=== PATIENT | male | born 1960 | race Caucasian/White ===

== ENCOUNTER → 2016-08-21 | Outpatient (CLI) | payer OTHER ==
[2016-08-21 18:38] LABS: Blood Urea Nitrogen 16 mg/dL (9-20); Non-African American GFR(MDRD) >60 (>60 ml/min/1.73 sqM)
--- NOTE | 2016-08-21 22:16 | CT ---
EXAMINATION TYPE: CT urogram wo/w con DATE OF EXAM: 08/21/2016 7:34 PM COMPARISON: NONE HISTORY: 55-year-old male with an episode of hematuria TECHNIQUE: Contiguous axial scanning of the abdomen and pelvis performed without and with IV Contrast , patient injected with 100 mL of Omnipaque 350. Delayed images through the kidneys and bladder were obtained. Coronal/sagittal reconstructions performed. CT DLP: 4744.9 mGycm Automated exposure control for dose reduction was used. FINDINGS: The heart is normal size without pericardial effusion. Coronary vessel calcifications are present in the marker for coronary artery disease. Some strandy atelectasis at the inferior lingula. No pleural effusion. Liver is enlarged measuring 22 cm craniocaudal with diffuse low-attenuation. No focal liver lesion se en. Portal venous system is patent. No biliary ductal dilatation. Gallbladder, adrenal glands, spleen with hilar splenule, and pancreas appear within normal limits. There is no nephrolithiasis. Symmetric uptake and excretion of contrast is noted from both kidneys. At the medial right lower pole, there is increased 1.1 cm cortical-based hypodensity which is too sma ll for accurate CT characterization and may represent a cyst. Partially exophytic from the left lower pole, there is a 3.9 cm cyst without any suspicious internal features. There is normal appearance to the bilateral intrarenal collecting systems. No suspicious filling defe ct is seen within either ureter and no abnormal wall thickening is seen. Only a short segment of the right ureter as it crosses the iliac vessels remains nonopacified and suboptimally assessed. Nonspecific prominent and borderline to mildly enlarged 7 mm left para-aortic lymph node, axial image 35. Scattered nonenlarged mesenteric lymph nodes are present. No dilated small bowel, free fluid, or free air. Scattered mild stool burden without pericolonic inflammatory change. There is left hemicolonic divert iculosis without acute diverticulitis. Mild circumferential bladder wall thickening is noted. Prostate gland measures 3.8 cm wide. On the de layed image, the posterior half of the bladder is opacified and no shows no suspicious filling defect . Rectum appears normal. No abnormal fluid collection in the pelvis or pelvic lymphadenopathy. Bones: Degenerative changes lower lumbar spine. There is right L5 hemisacralization. No osseous destr uctive process. IMPRESSION: 1. NO NEPHROLITHIASIS OR HYDRONEPHROSIS. NO ABNORMALITY SEEN ALONG THE RENAL COLLECTING SYSTEMS OR UR ETERS. 2. THERE IS A 1.1 CM HYPODENSE LESION LOWER POLE RIGHT KIDNEY TOO SMALL FOR ACCURATE CT CHARACTERIZAT ION. THIS PROBABLY REPRESENTS A CYST. RECOMMEND 6 MONTH FOLLOW-UP ULTRASOUND TO EXCLUDE ANY ENLARGING LESION. 3. A 3.9 CM BENIGN CYST AT THE LEFT LOWER POLE. 4. MILD CIRCUMFERENTIAL BLADDER WALL THICKENING COULD REPRESENT CHRONIC BLADDER WALL HYPERTROPHY OR C YSTITIS. CLINICALLY CORRELATE. 5. HEPATOMEGALY WITH MARKED HEPATIC STEATOSIS. 6. LEFT HEMICOLONIC DIVERTICULOSIS WITHOUT ACUTE DIVERTICULITIS.
== END | disposition home or self-care (01) ==
LOC: RADCTMAIN 17:41
PROVIDERS: ATTEND Urology
DX: N28.1 Cyst of kidney, acquired (principal); N28.89 Other specified disorders of kidney and ureter; N32.89 Other specified disorders of bladder; K76.0 Fatty (change of) liver, not elsewhere classified; R16.0 Hepatomegaly, not elsewhere classified; K57.30 Diverticulosis of large intestine without perforation or abscess without bleeding
CPT/HCPCS: 82565; 84520; 74178; 36415; 74400; Q9967

== ENCOUNTER → 2016-08-26 | Outpatient (CLI) | payer OTHER ==
--- NOTE | 2016-08-26 15:57 | US ---
EXAMINATION TYPE: US venous doppler duplex LE DATE OF EXAM: 08/26/2016 2:57 PM COMPARISON: NONE CLINICAL HISTORY: Cramping in Lower Limb R25.2. Patient stated had right thigh and calf cramping x 1. 5 weeks which subsided and recently has had left leg cramping x 1 week with symptoms also subsiding. Has spinal arthritis. SIDE PERFORMED: Bilateral TECHNIQUE: The lower extremity deep venous system is examined utilizing real time linear array sonog ish with graded compression, doppler sonography and color-flow sonography. VESSELS IMAGED: Common Femoral Vein Deep Femoral Vein Greater Saphenous Vein * Femoral Vein Popliteal Vein Small Saphenous Vein * Proximal Calf Veins (* superficial vessels) Right Leg: Negative for DVT Left Leg: Negative for DVT Incidental note made of lymph nodes within the left groin. IMPRESSION: 1. No diagnostic evidence of DVT as visualized.
--- NOTE | 2016-09-02 11:08 | P.ARTDOP ---
Arterial Doppler LOWER EXTREMITY ARTERIAL DOPPLER: DATE OF SERVICE: 08/26/2016 Reason for study: Leg pain. Doppler waveforms: Multiphasic bilaterally throughout. Pulse volume recording: []. Pressure gradients: None. Ankle-brachial indices: Greater than 1 bilaterally. Toe pressures: [] on the right, [] on the left Impression: Normal study.
== END | disposition home or self-care (01) ==
LOC: RADUSWWP 14:06
PROVIDERS: ATTEND Family Medicine
DX: R25.2 Cramp and spasm (principal)
CPT/HCPCS: 93922; 93970

== ENCOUNTER 2016-12-22 12:01 | Emergency (ER) | payer OTHER ==
[2016-12-22] MEDS ORDERED: KETOROLAC 30 MG/ML 1 ML VIAL IVP STA (12:28)
[2016-12-22] MEDS ORDERED: RX INFO: IV CONTRAST WAS GIVEN 1 EACH MISC MISCELLANE PRN (12:28)
[2016-12-22] MEDS ORDERED: SODIUM CHLORIDE 0.9% 500 ML IV STA (12:28)
[2016-12-22] MEDS ORDERED: SODIUM CHLORIDE 0.9% 1,000 ML IV STA (12:28)
[2016-12-22] MEDS ORDERED: LEVOFLOXACIN 750MG-D5W PMX 750 MG in DEXTROSE/WATER 1 150ML.BAG IVPB STA (12:28)
[2016-12-22 13:10] LABS: Basophils # (A) 0.1 k/uL (0-0.2); Basophils % (A) 0 %; CH 31.8; Eosinophils # (A) 0.3 k/uL (0-0.7); Eosinophils % (A) 2 %; HCT 45.9 % (39.0-53.0); HDW 2.74; HGB 15.8 gm/dL (13.0-17.5); Luc % (Auto) 1; Lymphocytes % (A) 14 %; MCH 30.5 pg (25.0-35.0); MCHC 34.4 g/dL (31.0-37.0); MCV 88.7 fL (80.0-100.0); Mean Platelet Volume 7.2; Monocytes # (A) 0.8 k/uL (0-1.0); Monocytes % (A) 6 %; Neutrophils % (A) 77 %; RBC 5.18 m/uL (4.30-5.90); RDW 14.2 % (11.5-15.5); WBC 14.4 k/uL (3.8-10.6); WBC (Perox) 14.03
[2016-12-22 13:20] LABS: ALT 74 U/L (21-72); AST 36 U/L (17-59); Alkaline Phosphatase 88 U/L (38-126); Amylase 52 U/L (30-110); Anion Gap 13 mmol/L; Blood Urea Nitrogen 15 mg/dL (9-20); Calcium 9.5 mg/dL (8.4-10.2); Carbon Dioxide 24 mmol/L (22-30); Chloride 101 mmol/L (98-107); Glucose 79 mg/dL (74-99); Non-African American GFR(MDRD) >60 (>60 ml/min/1.73 sqM); Potassium 4.4 mmol/L (3.5-5.1); Sodium 138 mmol/L (137-145); Total Bilirubin 0.8 mg/dL (0.2-1.3); Total Protein 7.3 g/dL (6.3-8.2)
[2016-12-22 13:26] LABS: Appearance,Urine Clear (Clear); Bilirubin,Urine Negative (Negative); Glucose,Urine (UA) Negative (Negative); Ketones,Urine Negative (Negative); Leukocyte Esterase,Urine Moderate (Negative); Nitrite,Urine Negative (Negative); PH, Urine 5.5 (5.0-8.0); Particle Count 607; Protein,Urine Negative (Negative); Specific Gravity,Urine 1.012 (1.001-1.035); Squamous Epithelial Cell,Urine <1 /hpf (0-4); UA Billing (MACRO vs. MICRO) MICRO; Urobilinogen,Urine <2.0 mg/dL (<2.0); WBC,Urine 9 /hpf (0-5)
[2016-12-22 13:33] LABS: Partial Thromboplastin Time 24.7 sec (22.0-30.0); Prothrombin Time 10.5 sec (9.0-12.0)
--- NOTE | 2016-12-22 14:17 | CT ---
EXAMINATION TYPE: CT abdomen pelvis w con DATE OF EXAM: 12/22/2016 COMPARISON: NONE INDICATION: lower ab pain since operations asst DLP: 2457.0 mGycm, Automated exposure control for dose reduction was used. CONTRAST: 100 mL of Omnipaque 300. Study performed without Oral Contrast TECHNIQUE: Axial images were obtained from above the diaphragm to the pubic rami in the axial plane a t 5 mm thick sections. Reconstructed images are reviewed on the computer in the coronal plane. FINDINGS: Limited CT sections are obtained the lung bases. The lung bases are clear. CT ABDOMEN: Liver: There is moderate fatty infiltration liver. No discrete masses or cysts are evident. Spleen: Normal Pancreas: Normal Adrenal glands: The adrenal glands are normal. Gallbladder: Normal Kidneys: No masses are evident. No hydronephrosis is present. There is a 4.0 cm cyst on the posteri or medial inferior left kidney measuring 8 Hounsfield units. Delayed images were obtained through th e kidneys, which remain unremarkable. Aorta: Vascular calcification is within the aorta. Inferior vena cava: Normal. CT PELVIS: Inflammatory changes are adjacent to the distal descending colon sigmoid colon junction compatible so me acute diverticulitis. Distal colon appears normal. Appendix: Not identified Urinary bladder: Normal. Genitourinary structures: Prostate is unremarkable. Osseous structures: No suspicious lytic or sclerotic lesions. IMPRESSIONS: 1. Acute diverticulitis descending colon sigmoid colon junction. No abscess formation is identified. 2. Left renal cyst 3. Moderate fatty infiltration of the liver
--- NOTE | 2016-12-22 15:09 | ED ---
Abdominal Pain HPI - General Chief Complaint: Abdominal Pain Stated Complaint: intestinal problems Time Seen by Provider: 12/22/16 12:23 Source: patient Mode of arrival: ambulatory Limitations: no limitations - History of Present Illness Initial Comments: This 56-year-old white male presents with a complaint of some left lower quadrant abdominal pain. The symptoms just started this morning. He states that it is moderate in severity. He denies any nausea vomiting, diarrhea, constipation, fevers, or chills. He denies any previous similar incidents. It is worse with certain movements. He denies any flank pain. There are no urinary problems such as frequency, urgency, dysuria, or hematuria. He does relate that he had a colonoscopy a couple years ago which did not show any abnormalities. He has never had diverticulitis in the past. - Related Data Home Medications Medication Instructions Recorded Confirmed Atorvastatin [Lipitor] 10 mg PO DAILY 05/16/14 12/22/16 Lisinopril [Prinivil] 20 mg PO DAILY 05/16/14 12/22/16 Bimatoprost [Lumigan .01% Ophth 1 drop RIGHT EYE HS 12/22/16 12/22/16 Soln] Diazepam [Diazepam] 2 mg PO BID PRN 12/22/16 12/22/16 Previous Rx's Medication Instructions Recorded Ciprofloxacin HCl [Cipro] 500 mg PO Q12HR #20 tablet 12/22/16 metroNIDAZOLE [Flagyl] 500 mg PO BID #20 tab 12/22/16 traMADol HCl [Ultram] 50 - 100 mg PO Q6H PRN #20 tab 12/22/16 Allergies Allergy/AdvReac Type Severity Reaction Status Date / Time No Known Allergies Allergy Verified 12/22/16 12:16 Review of Systems ROS Statement: Those systems with pertinent positive or pertinent negative responses have been documented in the HPI. ROS Other: All systems not noted in ROS Statement are negative. Past Medical History Past Medical History: Asthma, Eye Disorder, GERD/Reflux, Hyperlipidemia, Hypertension Additional Past Medical History / Comment(s): glaucoma History of Any Multi-Drug Resistant Organisms: None Reported Past Surgical History: Tonsillectomy Past Anesthesia/Blood Transfusion Reactions: No Reported Reaction Past Psychological History: No Psychological Hx Reported Smoking Status: Former smoker Past Alcohol Use History: Occasional Past Drug Use History: None Reported General Exam - General Exam Comments Initial Comments: GENERAL: The patient is well nourished and well hydrated. VITAL SIGNS: Heart rate, blood pressure, respiratory rate reviewed as recorded in nurse's notes. EYES: Pupils are round and reactive. Extraocular movements are intact. No conjunctival / lid redness or swelling. ENT: No external evidence of injury, swelling, or ecchymosis. Airway is patent. Throat is clear. NECK: Nontender. No swelling or evidence of injury. No subcutaneous emphysema. Trachea is midline. No thyroid mass. HEART: Regular rate and rhythm. Good peripheral pulses. LUNGS/CHEST: Breath sounds clear and equal bilaterally. No rales, rhonchi, or wheezes. No ecchymosis, subcutaneous emphysema, or tenderness. ABDOMEN: There is some mild tenderness noted to the left lower quadrant of the abdomen. No palpable masses or organomegaly. No peritoneal signs. No abdominal wall swelling or ecchymosis. EXTREMITIES: No extremity tenderness. Normal muscle tone and function. No thoracolumbar tenderness. NEUROLOGIC: Sensation is grossly intact. Cranial nerve exam reveals face is symmetrical, tongue is midline, speech is clear. SKIN: No abrasions or ecchymosis is noted. No induration or masses noted. PSYCHIATRIC: Alert and oriented. Appropriate behavior and judgment. Limitations: no limitations Course Vital Signs 12/22/16 12:16 Temperature 97.2 F L Pulse Rate 68 Respiratory 16 Rate Blood Pressure 129/70 O2 Sat by Pulse 96 Oximetry Medical Decision Making - Medical Decision Making The patient was seen and examined. All diagnostics were reviewed. The laboratory shows a leukocytosis but otherwise within normal limits. The computed tomography scan shows an uncomplicated left lower quadrant diverticulitis. There is no evidence of abscess. Old records were reviewed and the colonoscopy does show evidence of diverticulosis 2 years ago. He does receive some IV fluids, Toradol, and IV Levaquin. It is felt as though he does have diverticulitis. A long discussion was held in regard to inpatient versus outpatient treatment. He would prefer trial of outpatient treatment but has agreed to return if symptoms do worsen. He was counseled extensively regarding his disorder and diet therapy as well. He leaves in no identifiable distress. - Lab Data Result diagrams: 12/22/16 12:53 12/22/16 12:53 Lab Results 12/22/16 12/22/16 12/22/16 Range/Units 12:53 12:53 12:53 WBC 14.4 H (3.8-10.6) k/uL RBC 5.18 (4.30-5.90) m/uL Hgb 15.8 (13.0-17.5) gm/dL Hct 45.9 (39.0-53.0) % MCV 88.7 (80.0-100.0) fL MCH 30.5 (25.0-35.0) pg MCHC 34.4 (31.0-37.0) g/dL RDW 14.2 (11.5-15.5) % Plt Count 226 (150-450) k/uL Neutrophils % 77 % Lymphocytes % 14 % Monocytes % 6 % Eosinophils % 2 % Basophils % 0 % Neutrophils # 11.0 H (1.3-7.7) k/uL Lymphocytes # 2.0 (1.0-4.8) k/uL Monocytes # 0.8 (0-1.0) k/uL Eosinophils # 0.3 (0-0.7) k/uL Basophils # 0.1 (0-0.2) k/uL PT 10.5 (9.0-12.0) sec INR 1.0 (<1.2) APTT 24.7 (22.0-30.0) sec Sodium 138 (137-145) mmol/L Potassium 4.4 (3.5-5.1) mmol/L Chloride 101 (98-107) mmol/L Carbon Dioxide 24 (22-30) mmol/L Anion Gap 13 mmol/L BUN 15 (9-20) mg/dL Creatinine 0.85 (0.66-1.25) mg/dL Est GFR (MDRD) Af Amer >60 (>60 ml/min/1.73 sqM) Est GFR (MDRD) Non-Af >60 (>60 ml/min/1.73 sqM) Glucose 79 (74-99) mg/dL Calcium 9.5 (8.4-10.2) mg/dL Total Bilirubin 0.8 (0.2-1.3) mg/dL AST 36 (17-59) U/L ALT 74 H (21-72) U/L Alkaline Phosphatase 88 (38-126) U/L Total Protein 7.3 (6.3-8.2) g/dL Albumin 4.4 (3.5-5.0) g/dL Amylase 52 (30-110) U/L Lipase 104 (23-300) U/L Urine Color Urine Appearance (Clear) Urine pH (5.0-8.0) Ur Specific [place] (1.001-1.035) Urine Protein (Negative) Urine Glucose (UA) (Negative) Urine Ketones (Negative) Urine Blood (Negative) Urine Nitrite (Negative) Urine Bilirubin (Negative) Urine Urobilinogen (<2.0) mg/dL Ur Leukocyte Esterase (Negative) Urine WBC (0-5) /hpf Ur Squamous Epith Cells (0-4) /hpf 12/22/16 Range/Units 12:53 WBC (3.8-10.6) k/uL RBC (4.30-5.90) m/uL Hgb (13.0-17.5) gm/dL Hct (39.0-53.0) % MCV (80.0-100.0) fL MCH (25.0-35.0) pg MCHC (31.0-37.0) g/dL RDW (11.5-15.5) % Plt Count (150-450) k/uL Neutrophils % % Lymphocytes % % Monocytes % % Eosinophils % % Basophils % % Neutrophils # (1.3-7.7) k/uL Lymphocytes # (1.0-4.8) k/uL Monocytes # (0-1.0) k/uL Eosinophils # (0-0.7) k/uL Basophils # (0-0.2) k/uL PT (9.0-12.0) sec INR (<1.2) APTT (22.0-30.0) sec Sodium (137-145) mmol/L Potassium (3.5-5.1) mmol/L Chloride (98-107) mmol/L Carbon Dioxide (22-30) mmol/L Anion Gap mmol/L BUN (9-20) mg/dL Creatinine (0.66-1.25) mg/dL Est GFR (MDRD) Af Amer (>60 ml/min/1.73 sqM) Est GFR (MDRD) Non-Af (>60 ml/min/1.73 sqM) Glucose (74-99) mg/dL Calcium (8.4-10.2) mg/dL Total Bilirubin (0.2-1.3) mg/dL AST (17-59) U/L ALT (21-72) U/L Alkaline Phosphatase (38-126) U/L Total Protein (6.3-8.2) g/dL Albumin (3.5-5.0) g/dL Amylase (30-110) U/L Lipase (23-300) U/L Urine Color Yellow Urine Appearance Clear (Clear) Urine pH 5.5 (5.0-8.0) Ur Specific [place] 1.012 (1.001-1.035) Urine Protein Negative (Negative) Urine Glucose (UA) Negative (Negative) Urine Ketones Negative (Negative) Urine Blood Negative (Negative) Urine Nitrite Negative (Negative) Urine Bilirubin Negative (Negative) Urine Urobilinogen <2.0 (<2.0) mg/dL Ur Leukocyte Esterase Moderate H (Negative) Urine WBC 9 H (0-5) /hpf Ur Squamous Epith Cells <1 (0-4) /hpf Disposition Clinical Impression: Diverticulitis, Abdominal pain, Leukocytosis Disposition: HOME SELF-CARE Condition: Good Instructions: Abdominal Pain (ED), Diverticulitis (ED), Diverticulitis Diet (ED ) Prescriptions: Ciprofloxacin HCl [Cipro] 500 mg PO Q12HR #20 tablet metroNIDAZOLE [Flagyl] 500 mg PO BID #20 tab traMADol HCl [Ultram] 50 - 100 mg PO Q6H PRN #20 tab PRN Reason: Pain Referrals: Rob Carter DO [Primary Care Provider] - 1-2 days Time of Disposition: 15:08
[2016-12-22 15:26] VITALS: BP 122/78; PULSE 64; RESP 18; TEMP 98.4
== END 2016-12-22 15:26 | disposition home or self-care (01) ==
LOC: EC 12:01
DX: K57.32 Diverticulitis of large intestine without perforation or abscess without bleeding (principal); E78.5 Hyperlipidemia, unspecified; I10 Essential (primary) hypertension; Z87.891 Personal history of nicotine dependence; Z98.890 Other specified postprocedural states; Z79.899 Other long term (current) drug therapy
CPT/HCPCS: 99284; 96365; 96366; 96375; 96361; 36415; 80053; 82150; 83690; 85025; 85610; 85730; 81001; 87040; 74177; J1885; J1956

== ENCOUNTER → 2018-08-31 | Outpatient (CLI) | payer BC, OTHER ==
[2018-09-02 11:29] VITALS: BMI 44.9
== END ==
LOC: DBWHC3 14:45
DX: E66.01 Morbid (severe) obesity due to excess calories (principal)
CPT/HCPCS: 97802

== ENCOUNTER 2020-02-27 07:02 | Day surgery (SDC) | payer BC, OTHER ==
[2020-02-22 14:31] VITALS: BMI 45.8
[~2020-02-27 07:02] MED LIST: LACTATED RINGERS 1,000 ML IV SCH; LIDOCAINE 1% (10MG/ML) FOR IV START INTRADERMA PRN
[2020-02-27 07:31] VITALS: TEMP 98
[2020-02-27] MEDS ORDERED: LIDOCAINE 1% INJ 10MG/ML (20 ML MDV) ONE (08:04)
[2020-02-27] MEDS ORDERED: PROPOFOL 10 MG/ML 20 ML VIAL IV ONE (08:04)
--- NOTE | 2020-02-27 08:35 | P.PCN ---
Date of Procedure: 02/27/20 Description of Procedure: BRIEF HISTORY: Patient is a 59-year-old male presenting for outpatient colonoscopy for screening for malignant neoplasm in the colon. Last colonoscopy 5 years ago. Denies any blood per rectum or family history of colon cancer. PROCEDURE PERFORMED: Colonoscopy with polypectomy. PREOPERATIVE DIAGNOSIS: Screening for malignant neoplasm of the colon, last colonoscopy 5 years ago, patient does report a history of diverticulosis and polyps. ESTIMATED BLOOD LOSS: Minimal. IV sedation per Anesthesia. PROCEDURE: After informed consent was obtained, the patient, was brought into the endoscopy unit. IV sedation was administered by Anesthesia under continuous monitoring. Digital rectal examination was normal. Initially the Olympus CF-190 flexible video colonoscope was then inserted in the rectum, gradually advanced into the cecum without any difficulty. Careful examination was performed as the scope was gradually being withdrawn. Ileocecal valve and the appendiceal orifice were visualized and appeared normal. Prep was excellent. Mucosa of the cecum, as cending colon, transverse colon, descending colon, sigmoid colon, and rectum appeared normal. Cold snare polypectomy of ascending colon polyp measuring 7 mm in size, hepatic flexure polyp measuring 4 mm in size, transverse colon polyps measuring 4 and 5 mm in size. Cold forcep polypectomy of diminutive 2 mm rectal polyp. Multiple small and large mouth diverticula in the sigmoid colon. Retroflexion was performed in the rectum and no lesions were seen. The patient tolerated the procedure well. IMPRESSION: 4 flat polyps removed with cold snare polypectomy from the ascending colon, hepatic flexure, and transverse colon 2. Diminutive rectal polyp removed with cold forceps. Moderate sigmoid diverticulosis. RECOMMENDATIONS: Findings of this examination were discussed with the patient and his girlfriend. Okay to resume diet. Okay to resume medications. Await pathology from polypectomy. Recommend repeat colonoscopy in 3 years for high risk colon polyps pending pathology from polypectomies.
[2020-02-27 09:32] VITALS: BP 146/72; PULSE 65; RESP 16
== END 2020-02-27 09:30 | disposition home or self-care (01) ==
LOC: ORWHC2ENDO 07:02
PROVIDERS: ATTEND Internal Medicine
DX: Z12.11 Encounter for screening for malignant neoplasm of colon (principal); D12.3 Benign neoplasm of transverse colon; D12.2 Benign neoplasm of ascending colon; K62.1 Rectal polyp; K57.30 Diverticulosis of large intestine without perforation or abscess without bleeding; Z86.010 Personal history of colon polyps; I10 Essential (primary) hypertension; E78.5 Hyperlipidemia, unspecified; J45.909 Unspecified asthma, uncomplicated; K76.0 Fatty (change of) liver, not elsewhere classified; Z98.890 Other specified postprocedural states; Z87.891 Personal history of nicotine dependence
CPT/HCPCS: 88305; 45380; 45385; J2001; J2704

== ENCOUNTER → 2020-09-24 | Outpatient (CLI) | payer BC, OTHER ==
--- NOTE | 2020-09-25 08:34 | CT ---
EXAMINATION TYPE: CT chest wo con DATE OF EXAM: 09/24/2020 COMPARISON: None HISTORY: Dyspnea CT DLP: 1314.60 mGycm, Automated exposure control for dose reduction was used. CONTRAST: None TECHNIQUE: Axial images were obtained at 1 mm thick sections at 10 mm intervals. This will limit po rtions of the examination which may not be visualized within the [id number]. Images were obtained in the prone and supine views. FINDINGS: No suspicious lung nodules or focal infiltrates are present. No enlarged mediastinal or hilar adenopathy is evident. The ascending aorta diameter at the level o f the main pulmonary artery is 4.2 cm. The main pulmonary artery diameter at the bifurcation is 2.9 cm. Some coronary artery calcification is present. Limited CT sections are obtained through the upper abdomen. Abdomen is essentially unremarkable. IMPRESSIONS: 1. Ascending thoracic aortic aneurysm measuring 4.2 cm. 2. No suspicious lung findings.
== END | disposition home or self-care (01) ==
LOC: RADCTMAIN 16:04
PROVIDERS: ATTEND Internal Medicine
DX: I71.2 Thoracic aortic aneurysm, without rupture (principal)
CPT/HCPCS: 71250

== ENCOUNTER → 2021-03-13 | Outpatient (CLI) | payer BC, OTHER ==
[2021-03-13 16:04] VITALS: BP 158/88; PULSE 73; RESP 16; TEMP 98; BMI 45.8
--- NOTE | 2021-03-13 16:05 | P.HPBAR ---
Bariatric H&P - History & Physicial H&P Date: 03/13/21 History & Physicial: Visit/CC: Patient initial contact: Initial weight: Initial weight in pounds: Height: Initial BMI: Last weight: Current weight: Current weight in pounds: Current BMI: [place] body weight (based on NIH guidelines): Excess body weight loss: The patient is a 60 year-old M who presents for Bariatric Assessment. Patient presents to the bariatric clinic with his here. Patient has been considering weight loss surgery for the last year or so. Patient has complaints of shortness of breath which has been exacerbated by wearing masks during the pandemic. Patient suffers from hypertension, asthma, hypercholesterolemia, sleep apnea, reflux, diabetes, elevated liver enzymes with fatty liver, anxiety. Patient been seen by GI for his liver enzyme elevation, pulmonary for shortness of breath, cardiology as well. Denies history of DVT or dysphagia. Quit tobacco 25 years ago. No abdominal surgeries. BMI 45. Patient's had a lap band placed years ago and has done well with that. Patient has been considering lap band and sleeve gastrectomy. Review of Systems The patient denies any acute changes in vision or hearing, no dysphagia or odynophagia, no chest pain or shortness of breath, no dysuria or hematuria, no headache, no runny nose, no rectal bleeding or melena, no unexplained weight loss Past Medical History Past Medical History: Asthma, Eye Disorder, GERD/Reflux, Hyperlipidemia, Hypertension Additional Past Medical History / Comment(s): glaucoma History of Any Multi-Drug Resistant Organisms: None Reported Past Surgical History: Tonsillectomy Past Anesthesia/Blood Transfusion Reactions: No Reported Reaction Smoking Status: Former smoker Surgical - Exam Physical exam: General: Well-developed, well-nourished HEENT: Normocephalic, sclerae nonicteric Abdomen: Nontender, nondistended Extremities: No edema Neuro: Alert and oriented Bariatric Assessment & Plan (1) Morbid obesity with BMI of 45.0-49.9, adult Narrative/Plan: 60-year-old male with morbid obesity and associated comorbidities. Patient I discussed the risks and benefits of the proposed and widely accepted bariatric surgical procedures. The mechanisms of actions of both gastric bypass, lap band and gastric sleeve reviewed as well as the anticipated postoperative weight loss. Patient now is agreeable and seems to be most interested in sleeve gastrectomy. We'll obtain primary care, pulmonary and cardiac clearance. Tentatively scheduled for upper endoscopy in the next month or so. Patient does not appear to require supervised weight loss. Status: Acute Bariatric Checklist Checklist: Plan: Checklist: EGD: 1. Hiatal hernia: 2. H. Pylori: HgbA1c: Vitamin D: Smoking: Former smoker Primary care physician referral: Psychiatry clearance: Cardiology clearance: Sleep study: Diet journal: VTE risk score: VTE risk level: Rehab needs at discharge:
[2021-03-13 17:31] LABS: HCT 42.7 % (39.0-53.0); HGB 14.7 gm/dL (13.0-17.5); MCHC 34.3 g/dL (31.0-37.0); MCV 96.1 fL (80.0-100.0); Mean Platelet Volume 8.3; Platelet Count 144 k/uL (150-450); RBC 4.45 m/uL (4.30-5.90); RDW 13.8 % (11.5-15.5); WBC 9.6 k/uL (3.8-10.6)
[2021-03-14 04:04] LABS: African American GFR (CKD) 106.5 (60.0-200.0); Albumin 4.5 g/dL (3.8-4.9); Albumin/Globulin Ratio 1.55 (1.60-3.17); Anion Gap 15.8 mmol/L (10.00-18.00); BUN/Creat Ratio 18.78 Ratio (12.00-20.00); Blood Urea Nitrogen 16.9 mg/dL (9.0-27.0); Calcium 9.8 mg/dL (8.7-10.3); Carbon Dioxide 19.2 mmol/L (20.0-27.5); Globulin 2.9 g/dL (1.6-3.3); Non-African American GFR(CKD) 91.9 (60.0-200.0); Potassium 4.1 mmol/L (3.5-5.5); Total Bilirubin 0.7 mg/dL (0.30-1.20); Total Protein 7.4 g/dL (6.2-8.2)
[2021-03-14 04:05] LABS: Folate, Serum 9.6 ng/mL (4.40-31.00)
== END | disposition home or self-care (01) ==
LOC: BARWHC3 15:18
PROVIDERS: ATTEND Surgery
DX: E66.01 Morbid (severe) obesity due to excess calories (principal); Z68.42 Body mass index [BMI] 45.0-49.9, adult
CPT/HCPCS: 80053; 80323; 82306; 82607; 82746; 83036; 83540; 84425; 85027; 93005; 99203

== ENCOUNTER 2021-05-13 06:52 | Day surgery (SDC) | payer BC, OTHER ==
[2021-05-08 15:33] VITALS: BMI 46.5
[2021-05-13 07:24] VITALS: RESP 16; TEMP 97.2
[2021-05-13 07:24] LABS: Glucose,Whole Blood 124 mg/dL (75-99)
[2021-05-13] MEDS ORDERED: PROPOFOL 10 MG/ML 20 ML VIAL IV ONE (08:12)
[2021-05-13] MEDS ORDERED: LIDOCAINE 1% INJ 10MG/ML (20 ML MDV) ONE (08:12)
--- NOTE | 2021-05-13 08:15 | P.GSHP ---
History of Present Illness H&P Date: 05/13/21 Chief Complaint: GERD 60-year-old male here today for upper endoscopy. Patient is being worked up for possible sleeve gastrectomy. Describes mild reflux at times. No dysphagia. No previous EGD. Past Medical History Past Medical History: Asthma, Diabetes Mellitus, Eye Disorder, GERD/Reflux, Hyperlipidemia, Hypertension, Sleep Apnea/CPAP/BIPAP Additional Past Medical History / Comment(s): ELEVATED EYE PRESSURE , C PAP MACHINE, ELEVATED LIVER ENZYMES, History of Any Multi-Drug Resistant Organisms: None Reported Past Surgical History: Tonsillectomy Additional Past Surgical History / Comment(s): LASER EYE SURGERY- FOR PRESSURE OF EYE Past Anesthesia/Blood Transfusion Reactions: No Reported Reaction Smoking Status: Former smoker - Past Family History Mother Family Medical History: Cancer Additional Family Medical History / Comment(s): BREAST CANCER Sister(s) Family Medical History: Cancer Medications and Allergies Home Medications Medication Instructions Recorded Confirmed Type lisinopriL [Prinivil] 20 mg PO BID 05/16/14 05/13/21 History Albuterol Inhaler [Ventolin Hfa 1 puff INHALATION DAILY PRN 02/22/20 05/13/21 History Inhaler] Cinnamon Bark [Cinnamon] 500 mg PO DAILY 05/08/21 05/08/21 History Milk Thistle 150 mg PO DAILY 05/08/21 05/08/21 History Netarsudil Mesylat/Latanoprost 1 drop BOTH EYES HS 05/08/21 05/08/21 History [Rocklatan 0.02%-0.005% Eye Drp] Zolpidem [Ambien] 10 mg PO HS PRN 05/08/21 05/08/21 History metFORMIN HCL 500 mg PO BID 05/08/21 05/13/21 History Allergies Allergy/AdvReac Type Severity Reaction Status Date / Time No Known Allergies Allergy Verified 05/08/21 13:40 Surgical - Exam Vital Signs Temp Pulse Resp BP Pulse Ox 97.2 F L 70 16 152/71 97 05/13/21 07:22 05/13/21 07:22 05/13/21 07:22 05/13/21 07:22 05/13/21 07:22 Physical exam: General: Well-developed, well-nourished HEENT: Normocephalic, sclerae nonicteric Abdomen: Nontender, nondistended Extremities: No edema Neuro: Alert and oriented Results - Labs Abnormal Lab Results - Last 24 Hours (Table) 05/13/21 Range/Units 07:20 POC Glucose (mg/dL) 124 H (75-99) mg/dL Assessment and Plan (1) GERD (gastroesophageal reflux disease) Narrative/Plan: Will proceed with upper endoscopy Current Visit: Yes Status: Acute Code(s): K21.9 - GASTRO-ESOPHAGEAL REFLUX DISEASE WITHOUT ESOPHAGITIS SNOMED Code(s): 826487831
--- NOTE | 2021-05-13 08:24 | P.PCN ---
Date of Procedure: 05/13/21 Procedure(s) Performed: Preoperative Dx: GERD, presurgical Postoperative Dx: Mild gastritis, possible paraesophageal hernia Procedure: EGD with Bx Anesthesia: Sedation Endoscopist: Dr. Gaffney Specimens: Antrum Endoscopic Procedure: The patient was on the endoscopy table in the left decubitus position. The Olympus gastroscope was inserted into the oropharynx and passed under direct visualization to the region of the third portion of the duodenum. From that point the scope was slowly withdrawn inspecting all surfaces carefully. There were no neoplastic inflammatory or polypoid lesions throughout the duodenum. The pylorus was widely patent. The stomach was carefully inspected. There was mild gastritis present. A biopsy of the antrum took place to rule out H. pylori. Retroflexion revealed no obvious hiatal hernia however at the fundus there did appear to be more extension into the diaphragm than expected. A paraesophageal hernia is not excluded. The esophagus was then carefully examined. There were no neoplastic inflammatory or polypoid lesions throughout the visualized esophagus. The patient was then taken to the recovery room in stable condition per anesthesia guidelines. Recommendations: Await biopsy results. Will order CT chest if one has not been performed in the past. Follow-up bariatric clinic.
[2021-05-13 08:47] VITALS: BP 125/68; PULSE 62
== END 2021-05-13 09:20 | disposition home or self-care (01) ==
LOC: ORWHC2ENDO 06:52
PROVIDERS: ATTEND Surgery
DX: K29.50 Unspecified chronic gastritis without bleeding (principal); K21.9 Gastro-esophageal reflux disease without esophagitis; J45.909 Unspecified asthma, uncomplicated; E11.9 Type 2 diabetes mellitus without complications; E78.5 Hyperlipidemia, unspecified; I10 Essential (primary) hypertension; G47.33 Obstructive sleep apnea (adult) (pediatric); Z87.891 Personal history of nicotine dependence; R74.8 Abnormal levels of other serum enzymes; Z97.2 Presence of dental prosthetic device (complete) (partial); Z98.890 Other specified postprocedural states; Z80.3 Family history of malignant neoplasm of breast; Z80.9 Family history of malignant neoplasm, unspecified; Z79.84 Long term (current) use of oral hypoglycemic drugs; Z79.899 Other long term (current) drug therapy
CPT/HCPCS: 88305; 43239; J2001; J2704

== ENCOUNTER → 2021-05-26 | Outpatient (CLI) | payer BC, OTHER ==
[2021-05-26 12:00] VITALS: BMI 46.0
== END | disposition home or self-care (01) ==
LOC: BARWHC3 08:05
PROVIDERS: ATTEND Surgery
DX: E66.01 Morbid (severe) obesity due to excess calories (principal); Z71.3 Dietary counseling and surveillance
CPT/HCPCS: 97804

== ENCOUNTER → 2021-09-03 | Outpatient (CLI) | payer BC, OTHER ==
[2021-09-04 00:24] LABS: African American GFR (CKD) 72.3 (60.0-200.0); Albumin 4.7 g/dL (3.8-4.9); Albumin/Globulin Ratio 1.44 (1.60-3.17); BUN/Creat Ratio 27.74 Ratio (12.00-20.00); Blood Urea Nitrogen 34.4 mg/dL (9.0-27.0); Calcium 9.7 mg/dL (8.7-10.3); Carbon Dioxide 18.6 mmol/L (20.0-27.5); Globulin 3.2 g/dL (1.6-3.3); Non-African American GFR(CKD) 62.4 (60.0-200.0); Potassium 4.6 mmol/L (3.5-5.5); Total Bilirubin 0.8 mg/dL (0.30-1.20); Total Protein 7.9 g/dL (6.2-8.2)
[2021-09-04 01:13] LABS: Basophils # (A) 0.06 X 10*3/uL (0.00-0.10); Basophils % (A) 0.6 %; Eosinophils # (A) 0.23 X 10*3/uL (0.04-0.35); Eosinophils % (A) 2.4 %; HCT 41.4 % (39.6-50.0); HGB 13.2 g/dL (13.0-17.0); Immature Grans, Automated 0.2 %; Lymphocytes # (A) 2.85 X 10*3/uL (0.90-5.00); MCHC 31.9 g/dL (32.0-37.0); MCV 84.8 fL (80.0-97.0); Mean Platelet Volume 12.2 fL (9.5-12.2); Monocytes # (A) 0.86 X 10*3/uL (0.20-1.00); Monocytes % (A) 9.1 %; NRBC Per 100 WBC 0 /100 WBCS (0.0-0.0); Neutrophils # (A) 5.48 X 10*3/uL (1.80-7.70); Neutrophils % (A) 57.7 %; Platelet Count 116 X 10*3/uL (140-440); RBC 4.88 X 10*6/uL (4.40-5.60); RDW 17.5 % (11.5-14.5)
== END | disposition home or self-care (01) ==
LOC: LABPAT 14:26
PROVIDERS: ATTEND Surgery
DX: Z01.812 Encounter for preprocedural laboratory examination (principal)
CPT/HCPCS: 80053; 85025

== ENCOUNTER 2021-09-08 08:41 | Inpatient (IN) | payer BC, OTHER ==
[2021-09-04 10:12] VITALS: BMI 41.6
[~2021-09-08 08:41] MED LIST changes: +DEXAMETHASONE SOD PHOSPHATE 4 MG/ML 1 ML VIAL IV ONE; +ENOXAPARIN 40 MG/0.4 ML SYRINGE SQ PRN; -LACTATED RINGERS 1,000 ML IV SCH; +METOCLOPRAMIDE 5 MG/ML 2 ML VIAL IVP PRN; +ONDANSETRON 4 MG/2 ML VIAL IVP ONE; +SCOPOLAMINE 1 MG/72 HR PATCH TRANSDERM ONE; +ceFAZolin 3 GM in SODIUM CHLORIDE 0.9% 100 ML IVPB PRN
--- NOTE | 2021-09-08 09:26 | P.GSHP ---
History of Present Illness H&P Date: 09/08/21 Chief Complaint: Morbid obesity 60-year-old male here today for elective laparoscopic da Dino-assisted sleeve gastrectomy. The patient was initially seen in March of last year for his weight loss surgery. Patient suffers from hypertension asthma hypercholesterolemia and sleep apnea GERD diabetes elevated liver enzymes with fatty liver and anxiety. No active tobacco use. No history of DVT or dysphagia. Recent EGD showed gastritis and possible paraesophageal hiatal hernia but recent CAT scan shows no diaphragmatic defect at the fundus. Past Medical History Past Medical History: Asthma, Diabetes Mellitus, Eye Disorder, GERD/Reflux, Hyperlipidemia, Hypertension, Osteoarthritis (OA), Sleep Apnea/CPAP/BIPAP Additional Past Medical History / Comment(s): ELEVATED EYE PRESSURE , C PAP MACHINE, ELEVATED LIVER ENZYMES, History of Any Multi-Drug Resistant Organisms: None Reported Past Surgical History: Tonsillectomy Additional Past Surgical History / Comment(s): LASER EYE SURGERY- FOR PRESSURE OF EYE, Past Anesthesia/Blood Transfusion Reactions: No Reported Reaction Smoking Status: Former smoker - Past Family History Mother Family Medical History: Cancer Additional Family Medical History / Comment(s): BREAST CANCER Sister(s) Family Medical History: Cancer Medications and Allergies Home Medications Medication Instructions Recorded Confirmed Type Albuterol Inhaler [Ventolin Hfa 1 puff INHALATION DAILY PRN 02/22/20 09/08/21 History Inhaler] Cinnamon Bark [Cinnamon] 500 mg PO DAILY 05/08/21 09/08/21 History Milk Thistle 150 mg PO DAILY 05/08/21 09/08/21 History Netarsudil Mesylat/Latanoprost 1 drop BOTH EYES HS 05/08/21 09/08/21 History [Rocklatan 0.02%-0.005% Eye Drp] Zolpidem [Ambien] 10 mg PO HS PRN 05/08/21 09/08/21 History metFORMIN HCL 500 mg PO BID 05/08/21 09/08/21 History Benazepril HCl 20 mg PO BID 09/04/21 09/08/21 History Carvedilol [Coreg] 6.25 mg PO BID 09/04/21 09/08/21 History Ferrous Sulfate [Feosol] 325 mg PO DAILY 09/04/21 09/08/21 History Furosemide [Lasix] 40 mg PO DAILY 09/04/21 09/08/21 History Montelukast [Singulair] 10 mg PO HS 09/04/21 09/08/21 History Allergies Allergy/AdvReac Type Severity Reaction Status Date / Time No Known Allergies Allergy Verified 09/08/21 09:14 Surgical - Exam Physical exam: General: Well-developed, well-nourished HEENT: Normocephalic, sclerae nonicteric Abdomen: Nontender, nondistended Extremities: No edema Neuro: Alert and oriented Assessment and Plan (1) Morbid obesity with BMI of 45.0-49.9, adult Narrative/Plan: 60-year-old male with BMI of 41. Patient remains interested in sleeve gastrectomy. We'll proceed with laparoscopic assisted sleeve gastrectomy, possible open, with possible hiatal hernia repair if found. The risks of bleeding, infection, stenosis, stricture, leak, abscess, fistula formation, peritonitis, poor weight loss, reflux, vomiting, conversion to an open procedure, aborting sleeve gastrectomy, CO, PE, DVT, and were discussed. The patient understands and wishes to proceed. Current Visit: No Status: Acute Code(s): E66.01 - MORBID (SEVERE) OBESITY DUE TO EXCESS CALORIES; Z68.42 - BODY MASS INDEX [BMI] 45.0-49.9, ADULT SNOMED Code(s): 314757994
[2021-09-08 09:27] LABS: Glucose,Whole Blood 100 mg/dL (75-99)
[2021-09-08] MEDS: LACTATED RINGERS 1,000 ML IV SCH (09:40)
[2021-09-08] MEDS ORDERED: ROCURONIUM 10 MG/ML (5 ML VIAL) IV ONE (10:01)
[2021-09-08] MEDS ORDERED: PHENYLEPHRINE-0.9% NACL SYG 1,000 MCG/10 ML SYRINGE ONE (10:01)
[2021-09-08] MEDS ORDERED: SUCCINYLCHOLINE CHLORIDE VIAL 200 MG/10 ML VIAL IV ONE (10:01)
[2021-09-08] MEDS ORDERED: MIDAZOLAM 2 MG/2 ML VIAL ONE (10:01)
[2021-09-08] MEDS ORDERED: LIDOCAINE 2% INJ 20 MG/ML (2 ML VIAL) ONE (10:01)
[2021-09-08] MEDS ORDERED: PROPOFOL 10 MG/ML 20 ML VIAL IV ONE (10:01)
[2021-09-08] MEDS ORDERED: ePHEDrine 50 MG/ML 1 ML VIAL ONE (10:01)
[2021-09-08] MEDS ORDERED: NEOSTIGMINE 1 MG/ML 10 ML VIAL ONE (10:01)
[2021-09-08] MEDS ORDERED: fentaNYL (PF) 50 MCG/ML 2 ML AMP ONE (10:01)
[2021-09-08] MEDS ORDERED: GLYCOPYRROLATE 0.2 MG/ML 2 ML VIAL ONE (10:01)
[2021-09-08] MEDS ORDERED: BUPIVACAINE (PF) 0.25% 30 ML VIAL SQ ONE (10:25)
[2021-09-08] MEDS: HYDROmorphone 0.5 MG/0.5 ML SYRINGE IVP PRN ×5 (11:44→23:35)
--- NOTE | 2021-09-08 11:59 | P.OP ---
Date of Procedure: 09/08/21 Procedure(s) Performed: PREOPERATIVE DIAGNOSIS: Morbid obesity POSTOPERATIVE DIAGNOSIS: Same PROCEDURE: Laparoscopic sleeve gastrectomy SURGEON: Yeimy EBL: 250 mL ANESTHESIA: General COMPLICATIONS: Small bowel mesentery bleeding OPERATIVE PROCEDURE: Patient was placed in the operating table in the supine p osition. He was placed under general anesthesia at that time. The abdomen was prepped and draped in sterile fashion. A 5 mm optical trocar was used to enter the abdominal cavity in the left upper quadrant 3 cm lateral to the midline and 22 cm inferior to the xiphoid. As I entered into the abdominal cavity identified some fatty tissue around the tip of the optical trocar. As insufflation continued I noted that we were slightly deep to the peritoneum in a layer of fat. Initially this was thought to represent omentum. As I pulled the trocar back slightly I could see that there was a defect in the small bowel mesentery. He was noted to be bleeding coming from that area. An additional 8 mm trocar was placed in the right upper quadrant along the same plane. The suction device was used to more carefully inspect this defect in the small bowel mesentery. It was noted that there was persistent oozing from the mesenteric defect. Patient was cemented medically stable however given the continued oozing I felt it was safest to proceed with a midline incision to evaluate that more closely. The pneumoperitoneum was evacuated. A midline incision was made using the scalpel. The fascia and saphenous tissues were divided using electrocautery. I was able to inspect firsthand of the defect in the small bowel mesentery that was through and through. There was no deeper mesenteric or retroperitoneal tears or defects seen. Pressure was held on the mesenteric defect as I was inspecting further posteriorly and by the time we removed the pressure on the small bowel mesentery no further bleeding was identified. I did place a total of 3 2-0 Vicryl [id number] sutures at the defect site to help prevent recurrent bleeding. The abdomen was irrigated. Estimated blood loss 250 mL. I decided to not proceed with our planned sleeve gastrectomy at this time and this will be rescheduled at a later date. The midline fascia was then closed using a single linear double-stranded #1 PDS suture. The saphenous tissues were closed using 3-0 Vicryl sutures. The skin was reapproximated using a running 4-0 Monocryl subcuticular suture and interrupted subcuticular sutures at the trocar sites. Skin glue and sterile dressings were applied. DISPOSITION: Stable to recovery room. Operative findings discussed in detail with the patient's following the procedure. All questions answered.
[2021-09-08] MEDS ORDERED: ONDANSETRON 4 MG/2 ML VIAL IVP PRN (12:02)
[2021-09-08] MEDS ORDERED: traMADol 50 MG TAB PO PRN (12:02)
[2021-09-08] MEDS ORDERED: HYDROcodone/APAP 5-325MG 1 EACH TAB PO PRN (12:02)
[2021-09-08] MEDS ORDERED: NALOXONE 0.4 MG/ML 1 ML VIAL IV PRN (12:02)
[2021-09-08] MEDS ORDERED: LACTATED RINGERS 1,000 ML IV ONE (12:25)
[2021-09-08 14:19] LABS: Anisocytosis Slight; Basophils % (A) 0 %; Eosinophils % (A) 0 %; HCT 42.3 % (39.0-53.0); HGB 13.9 gm/dL (13.0-17.5); Lymphocytes # (A) 1.3 k/uL (1.0-4.8); Lymphocytes % (A) 7 %; MCH 27.8 pg (25.0-35.0); MCHC 32.9 g/dL (31.0-37.0); MCV 84.7 fL (80.0-100.0); Mean Platelet Volume 7.9; Monocytes # (A) 0.4 k/uL (0-1.0); Monocytes % (A) 2 %; Neutrophils # (A) 15.3 k/uL (1.3-7.7); Neutrophils % (A) 90 %; Platelet Count 182 k/uL (150-450); RDW 16.1 % (11.5-15.5)
[2021-09-08 14:32] VITALS: RESP 16
[2021-09-08] MEDS: DOCUSATE 100 MG CAP PO SCH (20:22)
[2021-09-08] MEDS ORDERED: ALBUTEROL NEBULIZED 2.5 MG/3 ML INHALATION PRN (21:31)
[2021-09-08] MEDS ORDERED: ZOLPIDEM 10 MG TAB PO PRN (21:31)
[2021-09-08] MEDS ORDERED: MONTELUKAST 10 MG TAB PO SCH (21:45)
[2021-09-08] MEDS ORDERED: PATIENT'S OWN (Netarsudil Mesylat/Latanoprost [Rocklatan 0.02%-0.005% Eye Drp] 2.5 ML BOTH EYES SCH (21:45)
[2021-09-08] MEDS: HEPARIN SODIUM,PORCINE/PF 5,000 UNIT/0.5 ML SYRINGE SQ SCH (23:30)
[2021-09-09] MEDS: carvediloL 6.25 MG TAB PO SCH ×2 (00:16→05:21)
[2021-09-09] MEDS: HYDROmorphone 0.5 MG/0.5 ML SYRINGE IVP PRN (02:52)
[2021-09-09 05:53] VITALS: PULSE 69; TEMP 98.4
[2021-09-09] MEDS ORDERED: PANTOPRAZOLE 40 MG/10 ML VIAL IV SCH (09:00)
[2021-09-09] MEDS ORDERED: metFORMIN 500 MG TAB PO SCH (09:00)
[2021-09-09] MEDS ORDERED: lisinopriL 10 MG TAB PO SCH (09:00)
[2021-09-09 09:16] LABS: Basophils # (A) 0.02 X 10*3/uL (0.00-0.10); Basophils % (A) 0.2 %; Eosinophils # (A) 0.08 X 10*3/uL (0.04-0.35); Eosinophils % (A) 0.7 %; HGB 12.6 g/dL (13.0-17.0); Immature Grans, Automated 0.4 %; Lymphocytes # (A) 1.89 X 10*3/uL (0.90-5.00); Lymphocytes % (A) 16.2 %; MCH 27.2 pg (27.0-32.0); MCHC 32.3 g/dL (32.0-37.0); MCV 84.2 fL (80.0-97.0); Mean Platelet Volume 11.5 fL (9.5-12.2); Monocytes % (A) 7.7 %; NRBC Per 100 WBC 0 /100 WBCS (0.0-0.0); Neutrophils # (A) 8.76 X 10*3/uL (1.80-7.70); Neutrophils % (A) 74.8 %; Platelet Count 148 X 10*3/uL (140-440); RBC 4.63 X 10*6/uL (4.40-5.60); RDW 17.2 % (11.5-14.5)
[2021-09-09] MEDS: HEPARIN SODIUM,PORCINE/PF 5,000 UNIT/0.5 ML SYRINGE SQ SCH (09:56)
[2021-09-09] MEDS: DOCUSATE 100 MG CAP PO SCH (09:57)
[2021-09-09 10:09] VITALS: BP 99/60
--- NOTE | 2021-09-09 11:15 | P.DS ---
Providers Date of admission: 09/08/21 12:02 Expected date of discharge: 09/09/21 Attending physician: Jason Gaffney Consults: 09/08/21 12:02 Consult Physician Routine Consulting Provider: Manuel Sanchez Consult Reason/Comments: Medical management Do you want consulting provider notified?: Yes Primary care physician: Rob Carter - Discharge Diagnosis(es) (1) Morbid obesity with BMI of 45.0-49.9, adult Patient was admitted yesterday for elective sleeve gastrectomy. Unfortunately during trocar introduction a small area of bleeding from the small bowel mesente ry was identified and the procedure was converted to a small laparotomy with evaluation and control of bleeding. Today the patient is doing well. Pain is well-controlled. He would like to go home. He is tolerating his diet. We'll discharge with outpatient follow-up planned in one week. Current Visit: No Status: Acute Plan - Discharge Summary Discharge Rx Participant: No New Discharge Prescriptions: No Action Albuterol Inhaler [Ventolin Hfa Inhaler] 1 puff INHALATION DAILY PRN PRN Reason: Dyspnea Netarsudil Mesylat/Latanoprost [Rocklatan 0.02%-0.005% Eye Drp] 1 drop BOTH EYES HS Milk Thistle 150 mg PO DAILY Furosemide [Lasix] 40 mg PO DAILY Benazepril HCl 20 mg PO BID Cinnamon Bark [Cinnamon] 500 mg PO DAILY metFORMIN HCL 500 mg PO BID Zolpidem [Ambien] 10 mg PO HS PRN PRN Reason: Insomnia Montelukast [Singulair] 10 mg PO HS Ferrous Sulfate [Feosol] 325 mg PO DAILY Carvedilol [Coreg] 6.25 mg PO BID Discharge Medication List Albuterol Inhaler [Ventolin Hfa Inhaler] 1 puff INHALATION DAILY PRN 02/22/20 [History] Cinnamon Bark [Cinnamon] 500 mg PO DAILY 05/08/21 [History] Milk Thistle 150 mg PO DAILY 05/08/21 [History] Netarsudil Mesylat/Latanoprost [Rocklatan 0.02%-0.005% Eye Drp] 1 drop BOTH EYES HS 05/08/21 [History] Zolpidem [Ambien] 10 mg PO HS PRN 05/08/21 [History] metFORMIN HCL 500 mg PO BID 05/08/21 [History] Benazepril HCl 20 mg PO BID 09/04/21 [History] Carvedilol [Coreg] 6.25 mg PO BID 09/04/21 [History] Ferrous Sulfate [Feosol] 325 mg PO DAILY 09/04/21 [History] Furosemide [Lasix] 40 mg PO DAILY 09/04/21 [History] Montelukast [Singulair] 10 mg PO HS 09/04/21 [History]
[2021-09-09] MEDS: LACTATED RINGERS 1,000 ML IV SCH (12:23)
--- NOTE | 2021-09-09 13:36 | CDI ---
Documentation Clarification Form Date: 09/09/2021 01:09:23 PM From: Karin Worrell RN CCDS Admit Date: 09/08/2021 12:02:00 PM Patient Name: Kamran Rowe Visit Number: [id number] Discharge Date: 09/09/2021 12:33:00 PM ATTENTION: The Clinical Documentation Specialists (CDI) and [facility] Coding Staff appreciate your assistance in clarifying documentation. Please respond to the clarification below the line at the bottom and electronically sign. The CDI & [facility] Coding staff will review the response and follow-up if needed. Please note: Queries are made part of the Legal Health Record. If you have any questions, please contact the author of this message via ITS. Dr. Jason Gaffney Bleeding from the small bowel mesentery is documented 09/08, Operative report and patient had an attempted Laparoscopic sleeve gastrectomy,09/08. Additional clarification is requested regarding the relationship, if any, that exists between the diagnosis and the procedure. Patients Admitting Diagnosis: Morbid obesity Post-Operative Diagnosis: Morbid obesity Procedure performed: Attempted Laparoscopic sleeve gastrectomy History/Risk Factors:60-year-old male presents to [facility] for elective sleeve gastrectomy. Medical history: Morbid obesity with BMI 41 , DM, Asthma and Sleep Apnea. 09/08, H&P. Clinical Indicators: Procedure report 09/08: As I pulled the trocar back slightly, I could see that there was a defect in the small bowel mesentery. He was noted to be bleeding coming from that area. Procedure report 09/08: Complications: Small bowel mesentery bleeding. Discharge Summary 09/09: Unfortunately during trocar introduction a small area of bleeding from the small bowel mesentery was identified. Treatment: Procedure converted to small laparotomy with evaluation and control of bleeding. 3 2-0 Vicryl figure of eight sutures. What relationship, if any, exists between the diagnosis of Bleeding from the small bowel mesentery and the procedure: [ X ] Bleeding from the small bowel mesentery is a complication of surgical procedure [ ] Bleeding from the small bowel mesentery is an expected outcome of the surgical procedure [ ] Bleeding from the small bowel mesentery is related to patients co-morbid condition(s) of [insert co-morbid dxs] & not a complication of the procedure [ ] [insert dx] has been ruled out [ ] Other please specify ____ [ ] Unable to determine (Template Last Revised: June 2020) MTDD
== END 2021-09-09 12:33 | disposition home or self-care (01) | DRG 982 ==
LOC: INTOOBSV 08:41 → 2ORMAIN 08:41 → OBSVTOIN 12:02 → 5NMEDONC 15:02
PROVIDERS: ADMIT Surgery; ATTEND Surgery
PROC: 0DJV4ZZ Inspection of Mesentery, Percutaneous Endoscopic Approach (ICD-10-PCS; 2021-09-08)
PROC: 0DQV0ZZ Repair Mesentery, Open Approach (ICD-10-PCS; principal; 2021-09-08 10:10)
DX: E66.01 Morbid (severe) obesity due to excess calories (principal); K91.71 Accidental puncture and laceration of a digestive system organ or structure during a digestive system procedure; K91.61 Intraoperative hemorrhage and hematoma of a digestive system organ or structure complicating a digestive system procedure; E11.9 Type 2 diabetes mellitus without complications; E78.00 Pure hypercholesterolemia, unspecified; F41.9 Anxiety disorder, unspecified; Z68.41 Body mass index [BMI] 40.0-44.9, adult; G47.30 Sleep apnea, unspecified; I10 Essential (primary) hypertension; K21.9 Gastro-esophageal reflux disease without esophagitis; J45.909 Unspecified asthma, uncomplicated; K76.0 Fatty (change of) liver, not elsewhere classified; Z79.84 Long term (current) use of oral hypoglycemic drugs; Y69 Unspecified misadventure during surgical and medical care
CPT/HCPCS: 85025

== ENCOUNTER → 2021-09-16 | Outpatient (CLI) | payer BC, OTHER ==
[2021-09-16 13:44] VITALS: BP 122/69; PULSE 59; RESP 16; TEMP 98.1; BMI 40.7
--- NOTE | 2021-09-16 14:06 | P.BASOAP ---
Subjective Progress Note Date: 09/16/21 Principal diagnosis: Morbid obesity Patient returns 1 week after attempted laparoscopic sleeve gastrectomy. Patient had bleeding from the mesentery during initial trocar insertion and required a minilaparotomy for evaluation. Since discharge patient has done well with the exception of constipation. Having mild right lower quadrant discomfort that seems to be improving. No nausea or vomiting, no fevers, no incisional drainage. Objective - Vital Signs Vital signs: Vital Signs Temp 98.1 F 09/16/21 13:41 Pulse 59 L 09/16/21 13:41 Resp 16 09/16/21 13:41 BP 122/69 09/16/21 13:41 Pulse Ox FiO2 Intake & Output 09/15/21 09/16/21 09/16/21 18:59 06:59 18:59 Weight 127.006 kg - Exam abdomen: Soft, nondistended, incision clean and dry, nontender Assessment/Plan (1) Morbid obesity with BMI of 45.0-49.9, adult Narrative/Plan: 60-year-old male doing well today after mini laparotomy last week. Continue light lifting. Continue diet as tolerated. Follow-up 1 month to discuss future surgery scheduling. Plan: Date: 09/16/21 Initial Weight: 142.882 kg Initial BMI: 45.8 Current Weight: 127.006 kg Current BMI: 40.7 Type of Surgery: Total Volume in Band: Previous Volume: Volume Removed: Volume Added: Band Size:
== END | disposition home or self-care (01) ==
LOC: BARWHC3 13:23
PROVIDERS: ATTEND Surgery
DX: E66.01 Morbid (severe) obesity due to excess calories (principal); Z68.42 Body mass index [BMI] 45.0-49.9, adult
CPT/HCPCS: 99211

== ENCOUNTER → 2021-10-07 | Outpatient (CLI) | payer BC, OTHER ==
[2021-10-07 13:04] VITALS: BP 114/71; PULSE 65; TEMP 98.2; BMI 41.1
--- NOTE | 2021-10-07 13:57 | P.BASOAP ---
Subjective Progress Note Date: 10/07/21 Principal diagnosis: morbid obesity Patient returns for bariatric follow-up. Doing well since last visit. No pain. Tolerating diet. Weight stayed about the same with only a 3 pound weight gain. He would like to go back to work. Objective - Vital Signs Vital signs: Vital Signs Temp 98.2 F 10/07/21 12:57 Pulse 65 10/07/21 12:57 Resp BP 114/71 10/07/21 12:57 Pulse Ox FiO2 Intake & Output 10/06/21 10/07/21 10/07/21 18:59 06:59 18:59 Weight 128.367 kg - Exam Abdomen: Soft, nondistended, incision clean and dry Assessment/Plan (1) Morbid obesity with BMI of 45.0-49.9, adult Narrative/Plan: Patient doing well at this time. May resume full work-related activities on . Follow-up with me in 2 months. We'll discuss scheduling sleeve gastrectomy at that time. Plan: Date: 10/07/21 Initial Weight: 142.882 kg Initial BMI: 45.8 Current Weight: 128.367 kg Current BMI: 41.1 Type of Surgery: Total Volume in Band: Previous Volume: Volume Removed: Volume Added: Band Size:
== END ==
LOC: BARWHC3 12:42
PROVIDERS: ATTEND Surgery
DX: E66.01 Morbid (severe) obesity due to excess calories (principal); Z68.41 Body mass index [BMI] 40.0-44.9, adult; Z87.891 Personal history of nicotine dependence
CPT/HCPCS: 99211

== ENCOUNTER → 2021-12-09 | Outpatient (CLI) | payer BC, OTHER ==
--- NOTE | 2021-12-10 07:08 | CONS ---
CONSULTATION CHIEF COMPLAINT: Obesity. INTERVAL HISTORY: The patient doing well today. Denies abdominal pain. He had gained 1 pound since last visit. The patient is reconsidering whether to go through a sleeve gastrectomy at this time. PHYSICAL EXAMINATION: ABDOMEN: Soft, nondistended, nontender. Incision clean and dry. PLAN: The patient doing well at this time. He will contact us if he would like to proceed with Lap-Band after the MMODL / IJN: [id number] /
[2021-12-10 09:50] VITALS: BP 132/78; PULSE 52; TEMP 98.2; BMI 41.8
== END | disposition home or self-care (01) ==
LOC: BARWHC3 20:33
PROVIDERS: ATTEND Surgery
DX: E66.09 Other obesity due to excess calories (principal)
CPT/HCPCS: 99211

== ENCOUNTER → 2022-09-08 | Outpatient (CLI) | payer BC, OTHER ==
--- NOTE | 2022-09-09 21:19 | CT ---
EXAMINATION TYPE: CT sinus wo con DATE OF EXAM: 09/08/2022 COMPARISON: None HISTORY: 61-year-old male chronic maxillary sinusitis CT DLP: 525.9 mGycm Automated exposure control for dose reduction was used. TECHNIQUE: Noncontrast axial views of the paranasal sinuses were obtained. Coronal and sagittal refor matted images were obtained. FINDINGS: PARANASAL SINUSES: Mild mucosal thickening floor of the right maxillary sinus and trace on the left. Trace mucosal thickening anterior ethmoid air cells. Sphenoid and frontal sinuses are well pneumatized. There is no air-fluid level. Reactive malini- osteogenesis is not seen. There is no destruction of the osseous unger of the paranasal sinuses. THE NASAL CAVITY: The osteomeatal complexes are patent. Slight leftward nasal septal deviation. The imaged brain and orbits are normal in appearance. Mastoid air cells and middle ear cavities are well pneumatized. Cerumen within the right greater than left external auditory canals. There is anterior subluxation of the bilateral TMJs. Unclear if this relates to the patient's mouth b eing partially opened. Reformatted images confirm above findings. IMPRESSION: Mild chronic maxillary and ethmoid sinus disease, greatest within the right maxillary sinus. Very sl ight leftward nasal septal deviation.
== END | disposition home or self-care (01) ==
LOC: RADCTMAIN 16:12
PROVIDERS: ATTEND Otolaryngology
DX: J32.0 Chronic maxillary sinusitis (principal); J32.2 Chronic ethmoidal sinusitis; J34.2 Deviated nasal septum
CPT/HCPCS: 70486

== ENCOUNTER → 2022-10-14 | Outpatient (CLI) | payer BC, OTHER ==
[2022-10-14 10:25] LABS: African American GFR (CKD) >90 (>60 ml/min/1.73 sqM); Blood Urea Nitrogen 14 mg/dL (9-20); Non-African American GFR(CKD) >90 (>60 ml/min/1.73 sqM)
--- NOTE | 2022-10-14 12:13 | CT ---
CT CHEST FOR PULMONARY EMBOLISM. EXAMINATION TYPE: CT angio chest DATE OF EXAM: 10/14/2022 INDICATION: Ascending thoracic aortic aneurysm CT DLP: 1637.00 mGycm, Automated exposure control for dose reduction was used. CONTRAST: Patient injected with 0 mL of Isovue 370. COMPARISON: 09/24/2020 TECHNIQUE: CT of the chest is performed on a spiral scan at 2 mm thick sections. Study is performed without intravenous contrast.. This will limit additional portions of the evaluation. Three-D recons tructed images are reviewed. FINDINGS: No persistent filling defects are evident to suggest an acute pulmonary embolism. No mediastinal or hilar adenopathy enlarged by CT criteria is evident. The ascending aorta diameter at the level of the main pulmonary artery is 4.1 cm. The main pulmonary artery diameter at the bifur cation is 2.9 cm. Coronary artery calcification is present. Aorta: The aorta at the aortic root is 3.8 cm. The aorta at the main pulmonary artery is 4.1 cm. Prado sverse dimension aortic arch is 3.0 cm aorta at the diaphragm is 2.6 cm. There is a three-vessel arch . Lung windows are clear. Limited CT section through the upper abdomen are unremarkable. IMPRESSIONS: 1. Ascending thoracic aortic aneurysm of 4.1 cm, stable from 09/24/2020 comparison
== END | disposition home or self-care (01) ==
LOC: RADCTMAIN 09:12
PROVIDERS: ATTEND Family Medicine
DX: I71.21 Aneurysm of the ascending aorta, without rupture (principal)
CPT/HCPCS: 82565; 84520; 71275; 36415; Q9967

== ENCOUNTER → 2023-10-20 | Outpatient (CLI) | payer BC, OTHER ==
--- NOTE | 2023-10-20 15:23 | CT ---
EXAMINATION TYPE: CT angio chest DATE OF EXAM: 10/20/2023 COMPARISON: 10/14/2022 HISTORY: Thoracic aortic aneurysm w/o rupture. CT DLP: 2352.9 mGycm CONTRAST: CTA thoracic aorta with 3-D reconstruction is performed and with IV Contrast, patient injected with 2 00 ml mL of Isovue 370. Contrast CTA of the thoracic aorta was performed from the lung apex through the upper abdomen. 3D re construction imaging obtained at a separate workstation. CT Chest: THORACIC AORTA: Ascending thoracic aortic aneurysm measuring 4.2 cm AP dimension versus 4.1 cm previo usly. The aortic arch and descending thoracic aorta are of normal caliber. Mild atheromatous changes seen. There is no evidence for dissection or periaortic collection. LUNGS: The lungs are clear and free of infiltrate or atelectasis. No pulmonary nodule or mass is det ected. No pleural effusion or CT evidence of interstitial lung disease. MEDIASTINUM: No evidence for mediastinal hematoma. The heart is not enlarged. No evidence for med iastinal mass or adenopathy. HILAR STRUCTURES: No evidence for mass. No hilar adenopathy is appreciated. OTHER: Partially imaged spleen demonstrates splenomegaly with a maximal AP dimension of 19.4 cm. IMPRESSION- 1. Essentially stable ascending thoracic aortic aneurysm. 2. Splenomegaly of uncertain etiology.
== END | disposition home or self-care (01) ==
LOC: RADCTMAIN 14:10
PROVIDERS: ATTEND Family Medicine
DX: I71.21 Aneurysm of the ascending aorta, without rupture (principal); R16.1 Splenomegaly, not elsewhere classified
CPT/HCPCS: 71275; Q9967

== ENCOUNTER → 2023-10-20 | Outpatient (CLI) | payer BC, OTHER ==
--- NOTE | 2023-10-20 15:17 | CT ---
EXAMINATION TYPE: CT brain w con DATE OF EXAM: 10/20/2023 COMPARISON: None HISTORY: Bilateral double vision. CT DLP: 1083.5mGycm CONTRAST: CT scan of the head is performed with IV Contrast, patient injected with 100ml mL of Isovue 370. Unenhanced followed by contrast enhanced CT of the brain is submitted for evaluation. The ventricles are midline. There is no evidence for intracranial hemorrhage or extra-axial collection. No mass e ffects are identified. Visualized bony calvarium is intact. Contrast is administered and no enhanci ng lesions are detected. No pathologic enhancement is identified. Globes are symmetric. Visualized extraocular musculature appear grossly unremarkable. If symptoms persist consider MRI. IMPRESSION: Unremarkable CT brain. If symptoms persist consider MRI of the orbits.
== END | disposition home or self-care (01) ==
LOC: RADCTMAIN 14:05
PROVIDERS: ATTEND Ophthalmology
DX: H49.02 Third [oculomotor] nerve palsy, left eye (principal)
CPT/HCPCS: 70460; Q9967

== ENCOUNTER 2024-02-23 14:54 | Emergency (ER) | payer BC, OTHER ==
[2024-02-23 15:11] VITALS: TEMP 98.2
--- NOTE | 2024-02-23 16:31 | ED ---
Abdominal Pain HPI - General Chief Complaint: Abdominal Pain Stated Complaint: Abd pain Time Seen by Provider: 02/23/24 15:13 Source: patient, RN notes reviewed Mode of arrival: ambulatory Limitations: no limitations - History of Present Illness Initial Comments: This is a 63-year-old male with history of diverticulitis, DM and GERD presenting with abdominal pain (6 out of 10) x 10 days. Patient describes pain as constant and cramping/pressure in his mid abdomen. Patient endorses early constipation and decreased appetite with ongoing belching. Patient states he is now having diarrhea after starting cefuroxime given at an urgent care for UTI. Patient endorses recent lab work from 02/20 showing white count of 18, diminishing platelets from the 150s to the 110s and KUB indicating possible gastroenteritis. Patient endorses dark and loose stool 2 days ago that is resolving. Patient endorses upcoming appointment with Dr. De Leon next week for a possible colonoscopy and follow-up with his primary care a week following. Patient Dors is subjective fever otherwise denies chills, chest pain, dyspnea, dizziness, nausea, vomiting. MD Complaint: abdominal pain Onset/Timin -: days(s) Location: periumbilical Radiation: none Migration to: no migration Severity scale (1-10): 6 Quality: cramping Consistency: constant Improves With: nothing Worsens With: nothing Associated Symptoms: diarrhea, constipation, melena - Related Data Home Medications Medication Instructions Recorded Confirmed Albuterol Inhaler [Ventolin Hfa 1 puff INHALATION DAILY PRN 02/22/20 12/10/21 Inhaler] Cinnamon Bark [Cinnamon] 500 mg PO DAILY 05/08/21 12/10/21 Milk Thistle 150 mg PO DAILY 05/08/21 12/10/21 Netarsudil Mesylat/Latanoprost 1 drop BOTH EYES HS 05/08/21 12/10/21 [Rocklatan 0.02%-0.005% Eye Drp] Zolpidem [Ambien] 10 mg PO HS PRN 05/08/21 12/10/21 metFORMIN HCL 500 mg PO BID 05/08/21 12/10/21 Benazepril HCl 20 mg PO BID 09/04/21 12/10/21 Ferrous Sulfate [Feosol] 325 mg PO DAILY 09/04/21 12/10/21 Furosemide [Lasix] 40 mg PO DAILY 09/04/21 12/10/21 Montelukast [Singulair] 10 mg PO HS 09/04/21 12/10/21 carvediloL [Coreg] 6.25 mg PO BID 09/04/21 12/10/21 Previous Rx's Medication Instructions Recorded HYDROcodone/APAP 5-325MG [Bronson 1 tab PO Q6HR PRN 3 Days #12 tab 09/09/21 5-325] Ciprofloxacin HCl [Cipro] 500 mg PO BID 10 Days #20 tab 02/23/24 metroNIDAZOLE 500 mg PO TID 10 Days #30 tablet 02/23/24 Allergies Allergy/AdvReac Type Severity Reaction Status Date / Time amoxicillin [From Augmentin] Allergy Unknown Verified 02/23/24 15:07 clavulanic acid Allergy Unknown Verified 02/23/24 15:07 [From Augmentin] Review of Systems ROS Statement: Those systems with pertinent positive or pertinent negative responses have been documented in the HPI. ROS Other: All systems not noted in ROS Statement are negative. Past Medical History Past Medical History: Asthma, Diabetes Mellitus, Eye Disorder, GERD/Reflux, Hyperlipidemia, Hypertension, Sleep Apnea/CPAP/BIPAP Additional Past Medical History / Comment(s): ELEVATED EYE PRESSURE , C PAP MACHINE, ELEVATED LIVER ENZYMES, History of Any Multi-Drug Resistant Organisms: None Reported Past Surgical History: Tonsillectomy Additional Past Surgical History / Comment(s): LASER EYE SURGERY- FOR PRESSURE OF EYE Past Anesthesia/Blood Transfusion Reactions: No Reported Reaction Past Psychological History: No Psychological Hx Reported Smoking Status: Former smoker Past Alcohol Use History: Occasional Past Drug Use History: None Reported - Past Family History Mother Family Medical History: Cancer Additional Family Medical History / Comment(s): BREAST CANCER Sister(s) Family Medical History: Cancer General Exam Limitations: no limitations General appearance: alert, in no apparent distress Head exam: Present: atraumatic, normocephalic, normal inspection Eye exam: Present: normal appearance, PERRL, EOMI. Absent: scleral icterus, conjunctival injection, periorbital swelling ENT exam: Present: normal exam, mucous membranes moist Neck exam: Present: normal inspection. Absent: tenderness, meningismus, lymphadenopathy Respiratory exam: Present: normal lung sounds bilaterally. Absent: respiratory distress, wheezes, rales, rhonchi, stridor Cardiovascular Exam: Present: regular rate, normal rhythm, normal heart sounds. Absent: systolic murmur, diastolic murmur, rubs, gallop, clicks GI/Abdominal exam: Present: soft, distended, tenderness (Right lower quadrant, left lower quadrant and hypogastric tenderness and tympanic tenderness. Negative guarding), rebound, hyperactive bowel sounds. Absent: guarding, rigid Extremities exam: Present: normal inspection, full ROM, normal capillary refill. Absent: tenderness, pedal edema, joint swelling, calf tenderness Back exam: Present: normal inspection Neurological exam: Present: alert, oriented X3, CN II-XII intact Psychiatric exam: Present: normal affect, normal mood Skin exam: Present: warm, dry, intact, normal color. Absent: rash Course Vital Signs 02/23/24 02/23/24 15:08 20:06 Temperature 98.2 F Pulse Rate 75 77 Respiratory 18 16 Rate Blood Pressure 152/78 132/80 O2 Sat by Pulse 95 96 Oximetry Medical Decision Making - Medical Decision Making Was pt. sent in by a medical professional or institution ([facility], ESCROW AGENT, urgent care, hospital, or care home...) When possible be specific @ -No Did you speak to anyone other than the patient for history (EMS, parent, family, police, friend...)? What history was obtained from this source @ -No Did you review nursing and triage notes (agree or disagree)? Why? @ -I reviewed and agree with nursing and triage notes Were old charts reviewed (outside hosp., previous admission, EMS record, old EKG, old radiological studies, urgent care reports/EKG's, care home records)? Report findings @ -No old charts were reviewed Differential Diagnosis (chest pain, altered mental status, abdominal pain women, abdominal pain men, vaginal bleeding, weakness, fever, dyspnea, syncope, headache, dizziness, GI bleed, back pain, seizure, CVA, palpatations, mental health, musculoskeletal)? @ -Differential Abdominal Pain Men: Appendicitis, cholecystitis, diverticulosis, ischemic bowel, pancreatitis, hepatitis, UTI, gastroenteritis, AAA, incarcerated hernia, bowel obstruction, constipation, inflammatory bowel, hepatitis, peptic ulcer disease, splenic infarction, perforated viscus, testicular torsion, this is not meant to be an all-inclusive list EKG interpreted by me (3pts min.). @ -Sinus rhythm with left axis deviation. No ST changes or T wave inversion. Ventricular rate 65 bpm, NOHELIA 172 ms, QRS duration 122 ms, QTc 417 ms. X-rays interpreted by me (1pt min.). @ -None done CT interpreted by me (1pt min.). @ -Abdominal pelvic CT scan shows acute diverticulitis of descending colon as well as developing partial small bowel obstruction due to mildly dilated small bowel loops with air-fluid levels. U/S interpreted by me (1pt. min.). @ -None done What testing was considered but not performed or refused? (CT, X-rays, U/S, labs)? Why? @ -None What meds were considered but not given or refused? Why? @ -None Did you discuss the management of the patient with other professionals (pr ofessionals i.e. , PA, ESCROW AGENT, lab, RT, psych nurse, renal social worker, blind teacher, teacher, port patrol officer, outsole caser)? Give summary @ -No Was smoking cessation discussed for >3mins.? @ -No Was critical care preformed (if so, how long)? @ -No Were there social determinants of health that impacted care today? How? (Homelessness, low income, unemployed, alcoholism, drug addiction, transportation, low edu. Level, literacy, decrease access to med. care, penitentiary, rehab)? @ -No Was there de-escalation of care discussed even if they declined (Discuss DNR or withdrawal of care, Hospice)? DNR status @ -No What co-morbidities impacted this encounter? (DM, HTN, Smoking, COPD, CAD, Cancer, CVA, ARF, Chemo, Hep., AIDS, mental health diagnosis, sleep apnea, morbid obesity)? @ -None Was patient admitted / discharged? Hospital course, mention meds given and route, prescriptions, significant lab abnormalities, going to OR and other pertinent info. @ -Abdominal pelvic CT scan shows acute diverticulitis of descending colon as well as developing partial small bowel obstruction due to mildly dilated small bowel loops with air-fluid levels. Lab work shows leukocytosis of 12.1 with left shift. Troponin and lactic acid were negative and other lab work generally unremarkable. Patient given IV Pepcid, Protonix and Toradol for pain with epigastric relief noted. Magic mouthwash for epigastric pain and magnesium citrate p.o. for impending small bowel obstruction provided. P.o. ciprofloxacin and Flagyl sent to pharmacy for diverticulitis treatment. Advised increased prune juice intake and MiraLAX once nightly for constipation. Advised follow-up with PCP in next 24 to 48 hours. Undiagnosed new problem with uncertain prognosis? @ -No Drug Therapy requiring intensive monitoring for toxicity (Heparin, Nitro, Insulin, Cardizem)? @ -No Were any procedures done? @ -No Diagnosis/symptom? @ -Diverticulitis, constipation Acute, or Chronic, or Acute on Chronic? @ -Acute Uncomplicated (without systemic symptoms) or Complicated (systemic symptoms)? @ -Complicated Side effects of treatment? @ -No Exacerbation, Progression, or Severe Exacerbation? @ -No Poses a threat to life or bodily function? How? (Chest pain, USA, NM, pneumonia, PE, COPD, DKA, ARF, appy, cholecystitis, CVA, Diverticulitis, Homicidal, Suicidal, threat to staff... and all critical care pts) @ -Diverticulitis - Lab Data Result diagrams: 02/23/24 16:52 02/23/24 16:52 Lab Results 02/23/24 02/23/24 02/23/24 Range/Units 16:52 16:52 16:52 WBC 12.1 H (3.8-10.6) k/uL RBC 5.23 (4.30-5.90) m/uL Hgb 15.4 (13.0-17.5) gm/dL Hct 46.0 (39.0-53.0) % MCV 88.0 (80.0-100.0) fL MCH 29.4 (25.0-35.0) pg MCHC 33.4 (31.0-37.0) g/dL RDW 14.1 (11.5-15.5) % Plt Count 145 L (150-450) k/uL MPV 7.6 Neutrophils % 78 % Lymphocytes % 13 % Monocytes % 5 % Eosinophils % 3 % Basophils % 0 % Neutrophils # 9.4 H (1.3-7.7) k/uL Lymphocytes # 1.6 (1.0-4.8) k/uL Monocytes # 0.6 (0-1.0) k/uL Eosinophils # 0.3 (0-0.7) k/uL Basophils # 0.0 (0-0.2) k/uL PT (10.0-12.5) sec INR (<1.2) APTT (22.0-30.0) sec Sodium 136 L (137-145) mmol/L Potassium 3.9 (3.5-5.1) mmol/L Chloride 105 (98-107) mmol/L Carbon Dioxide 24 (22-30) mmol/L Anion Gap 7 mmol/L BUN 18 (9-20) mg/dL Creatinine 0.78 (0.66-1.25) mg/dL Est GFR (CKD-EPI)AfAm >90 (>60 ml/min/1.73 sqM) Est GFR (CKD-EPI)NonAf >90 (>60 ml/min/1.73 sqM) Glucose 89 (74-99) mg/dL Plasma Lactic Acid Dwaine 1.1 (0.7-2.0) mmol/L Calcium 8.5 (8.4-10.2) mg/dL Magnesium 2.2 (1.6-2.3) mg/dL Total Bilirubin 0.9 (0.2-1.3) mg/dL AST 53 (17-59) U/L ALT 85 H (4-49) U/L Alkaline Phosphatase 68 (38-126) U/L Troponin I (0.000-0.034) ng/mL Total Protein 6.5 (6.3-8.2) g/dL Albumin 3.9 (3.5-5.0) g/dL Amylase 57 (30-110) U/L Lipase 223 (23-300) U/L Urine Color Urine Appearance (Clear) Urine pH (5.0-8.0) Ur Specific [place] (1.001-1.035) Urine Protein (Negative) Urine Glucose (UA) (Negative) Urine Ketones (Negative) Urine Blood (Negative) Urine Nitrite (Negative) Urine Bilirubin (Negative) Urine Urobilinogen (<2.0) mg/dL Ur Leukocyte Esterase (Negative) Urine RBC (0-5) /hpf Urine WBC (0-5) /hpf Ur Squamous Epith Cells (0-4) /hpf Urine Mucus (None) /hpf 02/23/24 02/23/24 02/23/24 Range/Units 17:15 17:15 17:34 WBC (3.8-10.6) k/uL RBC (4.30-5.90) m/uL Hgb (13.0-17.5) gm/dL Hct (39.0-53.0) % MCV (80.0-100.0) fL MCH (25.0-35.0) pg MCHC (31.0-37.0) g/dL RDW (11.5-15.5) % Plt Count (150-450) k/uL MPV Neutrophils % % Lymphocytes % % Monocytes % % Eosinophils % % Basophils % % Neutrophils # (1.3-7.7) k/uL Lymphocytes # (1.0-4.8) k/uL Monocytes # (0-1.0) k/uL Eosinophils # (0-0.7) k/uL Basophils # (0-0.2) k/uL PT 11.6 (10.0-12.5) sec INR 1.1 (<1.2) APTT 25.5 (22.0-30.0) sec Sodium (137-145) mmol/L Potassium (3.5-5.1) mmol/L Chloride (98-107) mmol/L Carbon Dioxide (22-30) mmol/L Anion Gap mmol/L BUN (9-20) mg/dL Creatinine (0.66-1.25) mg/dL Est GFR (CKD-EPI)AfAm (>60 ml/min/1.73 sqM) Est GFR (CKD-EPI)NonAf (>60 ml/min/1.73 sqM) Glucose (74-99) mg/dL Plasma Lactic Acid Dwaine (0.7-2.0) mmol/L Calcium (8.4-10.2) mg/dL Magnesium (1.6-2.3) mg/dL Total Bilirubin (0.2-1.3) mg/dL AST (17-59) U/L ALT (4-49) U/L Alkaline Phosphatase (38-126) U/L Troponin I <0.012 (0.000-0.034) ng/mL Total Protein (6.3-8.2) g/dL Albumin (3.5-5.0) g/dL Amylase (30-110) U/L Lipase (23-300) U/L Urine Color Colorless Urine Appearance Clear (Clear) Urine pH 5.5 (5.0-8.0) Ur Specific [place] 1.014 (1.001-1.035) Urine Protein Negative (Negative) Urine Glucose (UA) Negative (Negative) Urine Ketones Negative (Negative) Urine Blood Negative (Negative) Urine Nitrite Negative (Negative) Urine Bilirubin Negative (Negative) Urine Urobilinogen <2.0 (<2.0) mg/dL Ur Leukocyte Esterase Small H (Negative) Urine RBC 1 (0-5) /hpf Urine WBC 2 (0-5) /hpf Ur Squamous Epith Cells 2 (0-4) /hpf Urine Mucus Rare H (None) /hpf Disposition Clinical Impression: Diverticulitis, Constipation Disposition: HOME SELF-CARE Condition: Good Instructions (If sedation given, give patient instructions): Diverticulitis (DC), Constipation (DC) Prescriptions: Ciprofloxacin HCl [Cipro] 500 mg PO BID 10 Days #20 tab metroNIDAZOLE 500 mg PO TID 10 Days #30 tablet Is patient prescribed a controlled substance at d/c from ED?: No Referrals: Rob Carter DO [Primary Care Provider] - 1-2 days Vale Fleming MD [STAFF PHYSICIAN] - 1-2 days Time of Disposition: 19:52
[2024-02-23] MEDS: KETOROLAC 15 MG/ML 1 ML VIAL IVP STA (17:04)
[2024-02-23 17:06] LABS: Basophils % (A) 0 %; Eosinophils # (A) 0.3 k/uL (0-0.7); Eosinophils % (A) 3 %; HGB 15.4 gm/dL (13.0-17.5); Lymphocytes # (A) 1.6 k/uL (1.0-4.8); Lymphocytes % (A) 13 %; MCH 29.4 pg (25.0-35.0); MCHC 33.4 g/dL (31.0-37.0); Mean Platelet Volume 7.6; Monocytes # (A) 0.6 k/uL (0-1.0); Monocytes % (A) 5 %; Neutrophils # (A) 9.4 k/uL (1.3-7.7); Neutrophils % (A) 78 %; Platelet Count 145 k/uL (150-450); RBC 5.23 m/uL (4.30-5.90); RDW 14.1 % (11.5-15.5); WBC 12.1 k/uL (3.8-10.6)
[2024-02-23] MEDS: FAMOTIDINE 20 MG/2 ML VIAL IV STA (17:06)
[2024-02-23] MEDS: PANTOPRAZOLE 40 MG/10 ML VIAL IVP STA (17:08)
[2024-02-23 17:14] LABS: ALT 85 U/L (4-49); AST 53 U/L (17-59); African American GFR (CKD) >90 (>60 ml/min/1.73 sqM); Albumin 3.9 g/dL (3.5-5.0); Alkaline Phosphatase 68 U/L (38-126); Amylase 57 U/L (30-110); Anion Gap 7 mmol/L; Blood Urea Nitrogen 18 mg/dL (9-20); Calcium 8.5 mg/dL (8.4-10.2); Carbon Dioxide 24 mmol/L (22-30); Chloride 105 mmol/L (98-107); Glucose 89 mg/dL (74-99); Lipase 223 U/L (23-300); Magnesium 2.2 mg/dL (1.6-2.3); Non-African American GFR(CKD) >90 (>60 ml/min/1.73 sqM); Potassium 3.9 mmol/L (3.5-5.1); Sodium 136 mmol/L (137-145); Total Bilirubin 0.9 mg/dL (0.2-1.3); Total Protein 6.5 g/dL (6.3-8.2)
[2024-02-23 17:56] LABS: Appearance,Urine Clear (Clear); Bilirubin,Urine Negative (Negative); Blood,Urine Negative (Negative); Color,Urine Colorless; Glucose,Urine (UA) Negative (Negative); Ketones,Urine Negative (Negative); Leukocyte Esterase,Urine Small (Negative); Mucus,Urine Rare /hpf; Nitrite,Urine Negative (Negative); PH, Urine 5.5 (5.0-8.0); Protein,Urine Negative (Negative); RBC,Urine 1 /hpf (0-5); Specific Gravity,Urine 1.014 (1.001-1.035); Squamous Epithelial Cell,Urine 2 /hpf (0-4); Urobilinogen,Urine <2.0 mg/dL (<2.0); WBC,Urine 2 /hpf (0-5)
[2024-02-23 18:00] LABS: INR 1.1 (<1.2); Partial Thromboplastin Time 25.5 sec (22.0-30.0); Prothrombin Time 11.6 sec (10.0-12.5)
[2024-02-23] MEDS: MAG HYDROX PO SCH (18:37)
[2024-02-23] MEDS: DIPHENHYDRAMINE PO SCH (18:37)
[2024-02-23] MEDS: AL HYDROX PO SCH (18:37)
[2024-02-23] MEDS: SIMETH PO SCH (18:37)
[2024-02-23] MEDS: [UNRECOGNIZED DRUG - OTHER] PO SCH (18:37)
--- NOTE | 2024-02-23 19:32 | CT ---
EXAMINATION TYPE: CT abdomen pelvis w con DATE OF EXAM: 02/23/2024 6:34 PM COMPARISON: Previous CT abdomen/pelvis study dated 12/22/2016. CLINICAL INDICATION: Male, 63 years old with history of Abdominal pain; Pt c/o abdominal pain. Seen at Wednesday for constipation and UTI. Last BM today; almost liquid. States he was told to come to ED for abdominal pain. TECHNIQUE: Axial CT abdomen pelvis w con;Sagittal and coronal reformats were created on a separate w orkstation. Contrast used:100 ml mL of Isovue 300 with IV Contrast, (none if empty) Oral contrast used: without Oral Contrast (none if empty) CT DLP: 2963.4 mGycm, Automated exposure control for dose reduction was used. FINDINGS: LOWER CHEST: Unremarkable ABDOMEN Cirrhotic liver morphology and splenomegaly measuring 16.8 cm in AP dimension. Adrenal glands unremar kable. Gallbladder unremarkable. Veins appear patent. Pancreas unremarkable. No abnormal biliary duct dilatation. Simple cyst in the i nferior left kidney. Additional subcentimeter hypodense lesions bilaterally are too small to actually characterize. No hydronephrosis. No evidence of nephrolithiasis. Abdominal aorta demonstrates calcified disease without aneurysmal dilatation. No pathologic peritonea l or mesenteric lymphadenopathy. No significant free fluid or free air in the abdomen/pelvis. Nonspec ific air-fluid levels throughout the small bowel and mildly dilated small bowel loops without discret e transition point. Appendix is visualized and appears unremarkable. Colonic diverticulosis with shor t segment wall thickening of the descending colon with adjacent mesenteric inflammation. Bladder unremarkable. Prostate gland within normal limits for size. No acute osseous abnormality. IMPRESSION: 1. Findings compatible with acute diverticulitis of the descending colon. No pericolic abscess or ev idence of free air to suggest perforation at this time. 2. Numerous mildly dilated small bowel loops with air-fluid levels without discrete transition point felt to most likely reflect ileus versus developing partial small bowel obstruction. No bowel wall p neumatosis. 3. Additional nonacute findings as above. [facility], , 02/23/2024 7:29 PM
[2024-02-23] MEDS: MAGNESIUM CITRATE 296 ML BOTTLE PO ONE (20:02)
[2024-02-23 20:07] VITALS: BP 132/80; PULSE 77; RESP 16
== END 2024-02-23 20:07 | disposition home or self-care (01) ==
LOC: EC 14:54
DX: K57.32 Diverticulitis of large intestine without perforation or abscess without bleeding (principal)
CPT/HCPCS: 99284 ×2; 96374 ×2; 96375 ×3; 36415; 93005; 80053; 82150; 83605; 83690; 83735; 84484; 85025; 85610; 85730; 81001; 74177; J3490; J1885; Q9967; J2470

== ENCOUNTER 2024-05-26 05:36 | Day surgery (SDC) | payer BC, OTHER ==
[2024-05-25 09:17] VITALS: BMI 43.2
[2024-05-26 06:10] VITALS: TEMP 97.7
[2024-05-26 06:21] LABS: Glucose,Whole Blood 93 mg/dL (70-110)
[2024-05-26] MEDS: LACTATED RINGERS 1,000 ML IV SCH (06:22)
[2024-05-26] MEDS: IV FLUID CONTINUATION 1,000 ML IV ONE (06:22)
[2024-05-26] MEDS ORDERED: LIDOCAINE 1% INJ 10MG/ML (20 ML MDV) ONE (06:32)
[2024-05-26] MEDS ORDERED: PROPOFOL 10 MG/ML 20 ML VIAL IV ONE (06:32)
--- NOTE | 2024-05-26 06:53 | P.PCN ---
Date of Procedure: 05/26/24 Procedure(s) Performed: Brief history: Patient is a pleasant 63-year-old white male scheduled for an elective upper endoscopy as well as colonoscopy as a part of evaluation of history of liver cirrhosis and screening for esophageal varices and screening for history of colon polyps. Last colonoscopy was done 4 years ago and was noted to have multiple small tubular adenomas Procedure performed: Esophagogastroduodenoscopy with biopsy Colonoscopy with biopsy Preoperative diagnosis: History of liver cirrhosis screening for esophageal varices Screening for history of colon polyps Anesthesia: MAC Procedure: After informed consent was obtained from the patient was brought into the endoscopy unit and IV sedation was administered by anesthesia under continuous monitoring. Initially upper endoscopy was done. The Olympus GF 160 video endoscope was inserted inserted into the mouth and esophagus intubated without any difficulty and was gradually advanced into the stomach and duodenum and carefully examined. The bulb and second part of the duodenum appeared normal. The scope was then withdrawn into the stomach adequately insufflated with air and upon careful examination the antrum and body, cardia and fundus appeared normal. Small inflamed gastric polyps identified which were biopsied. The scope was then withdrawn into the esophagus. The GE junction was located at 40 cm to the incisors. It appeared regular with no erythema erosions or ulcerations. No esophageal varices seen. Rest of the esophagus appeared normal. Patient tolerated the procedure well. At this time the patient continued to remain sedation. Initial digital rectal examination was normal. Olympus CF 160 video colonoscope was then inserted into the rectum and gradually advanced to the cecum without any difficulty. Careful examination was performed as the scope was gradually being withdrawn. The prep was excellent. The cecum, 3 mm polyp that was removed by cold biopsy. In the ascending colon there was another 4 mm polyp that was removed by cold biopsy. Rest of the ascending colon, transverse colon, descending colon, sigmoid colon and rectum appeared normal. Scattered sigmoid diverticulosis. Retroflexion was performed in the rectum and grade 2 internal hemorrhoids were noted. Patient tolerated the procedure well. Impression: 1. Upper endoscopy revealed multiple small inflamed gastric polyps but no evidence of gastric or esophageal varices 2. Colonoscopy revealed 3 mm cecal polyp and a 4 mm ascending colon polyp status post cold biopsy, scattered sigmoid diverticulosis and grade 2 internal hemorrhoids Recommendations: Findings of this examination were discussed with the patient as well as his family. He was advised to follow-up with the biopsy results. Recommended repeat upper endoscopy in 2 to 3 years to screen for esophageal varices. Repeat colonoscopy in 5 years.
[2024-05-26 07:15] VITALS: BP 105/53; PULSE 56; RESP 18
== END 2024-05-26 07:32 | disposition home or self-care (01) ==
LOC: ORWHC2ENDO 05:36
PROVIDERS: ATTEND Internal Medicine Gastroenterology
DX: K57.30 Diverticulosis of large intestine without perforation or abscess without bleeding (principal); K64.1 Second degree hemorrhoids; K31.7 Polyp of stomach and duodenum; D12.0 Benign neoplasm of cecum; D12.2 Benign neoplasm of ascending colon; Z86.0101 Personal history of adenomatous and serrated colon polyps; K74.60 Unspecified cirrhosis of liver
CPT/HCPCS: 88305; 88342; 45380; 43239; J2003; J2704

== ENCOUNTER → 2024-08-14 | Outpatient (CLI) | payer OTHER ==
--- NOTE | 2024-08-14 08:48 | US ---
EXAMINATION TYPE: US liver DATE OF EXAM: 08/14/2024 COMPARISON: CLINICAL INDICATION: Male, 63 years old with history of K76.0 FATTY (CHANGE OF) LIVER, NOT ELSEWHERE CLASS; hx fatty liver TECHNIQUE: Grayscale and color Doppler imaging of the right upper quadrant was performed. FINDINGS: EXAM MEASUREMENTS: Liver Length: 20.6 cm Gallbladder Wall: 0.2 cm CBD: 0.5 cm Right Kidney: 13.1 x 6.3 x 5.4 cm Pancreas: Head and tail obscured by overlying bowel gas. Visualized pancreatic body shows no gross a bnormality. Liver: Increased attenuation, decreased visualization of vessels suggestive of fatty infiltrate. He terogenous. Coarse. No focal lesion seen. Gallbladder: No stones or wall thickening. Evidence for sonographic Morales's sign: neg CBD: wnl Right Kidney: No hydronephrosis or masses seen IMPRESSION: 1. Hepatomegaly at 20.6 cm with moderate to severe hepatic steatosis. Appropriate clinical management is advised. 2. No gallstones or biliary ductal dilatation. [facility], , 08/14/2024 8:46 AM
[2024-08-14 15:41] LABS: BUN/Creat Ratio 12.75 Ratio (12.00-20.00); Blood Urea Nitrogen 10.2 mg/dL (9.0-27.0); Glucose 104 mg/dL (70-110)
[2024-08-14 15:42] LABS: ALT 34 U/L (10-49); AST 31 U/L (14-35); Albumin 4.1 g/dL (3.8-4.9); Albumin/Globulin Ratio 1.46 Ratio (1.60-3.17); Alkaline Phosphatase 94 U/L (41-126); Calcium 9.1 mg/dL (8.7-10.3); Carbon Dioxide 22.3 mmol/L (21.6-31.8); Chloride 106 mmol/L (96-109); Globulin 2.8 g/dL (1.6-3.3); Potassium 4.2 mmol/L (3.5-5.5); Sodium 140 mmol/L (135-145); Total Bilirubin 0.5 mg/dL (0.3-1.2); Total Protein 6.9 g/dL (6.2-8.2)
[2024-08-14 16:12] LABS: Basophils # (A) 0.04 X 10*3/uL (0.00-0.10); Basophils % (A) 0.9 %; Eosinophils # (A) 0.15 X 10*3/uL (0.04-0.35); Eosinophils % (A) 3.3 %; HCT 40.3 % (39.6-50.0); HGB 12.8 g/dL (13.0-17.0); Immature Platelet Fraction 9.7 % (1.1-6.1); Lymphocytes # (A) 1.04 X 10*3/uL (0.90-5.00); Lymphocytes % (A) 23.1 %; MCH 26.8 pg (27.0-32.0); MCHC 31.8 g/dL (32.0-37.0); MCV 84.3 FL (80.0-97.0); Mean Platelet Volume 11.9 FL (9.5-12.2); Monocytes # (A) 0.37 X 10*3/uL (0.20-1.00); Monocytes % (A) 8.2 %; NRBC Per 100 WBC 0 X 10*3/uL (0.00-0.01); Neutrophils # (A) 2.89 X 10*3/uL (1.80-7.70); Neutrophils % (A) 64.3 %; Platelet Count 86 X 10*3/uL (140-440); RBC 4.78 X 10*6/uL (4.40-5.60); RBC Morphology Normal (Normal); RDW 14.2 % (11.5-14.5)
== END | disposition home or self-care (01) ==
LOC: RADUSWWP 07:53
PROVIDERS: ATTEND Internal Medicine Gastroenterology
DX: K76.0 Fatty (change of) liver, not elsewhere classified (principal); R16.0 Hepatomegaly, not elsewhere classified
CPT/HCPCS: 76705; 80053; 82105; 85025